=== PATIENT | female | born 1990 | race Caucasian/White ===

== ENCOUNTER → 2023-06-09 16:19 | Outpatient (REF) | payer BC, SELFPAY ==
[2023-06-09 16:59] LABS: % Basophils 0.7 % (0-2); % Eosinophils 0.2 % (0-6); % Immature Granulocytes 3.6 % (0-0.5); % Lymphocytes 19.9 % (20.5-51.1); % Neutrophils 66.6 % (42.2-75.2); Absolute Basophils 0.1 10^3/uL (0-0.2); Absolute Immature Granulocytes 0.4 10^3/uL (0-0.05); Absolute Lymphocytes 2.4 10^3/uL (1.2-3.4); Absolute Monocytes 1.1 10^3/uL (0.1-0.6); Hematocrit 34.5 % (37.0-47.0); Mean Corp Hgb Conc. 34.8 g/dL (33.0-37.0); Mean Corpuscular Hgb 28.3 pg (27.0-31.0); Mean Corpuscular Volume 81.4 fL (81.0-99.0); Nucleated Red Blood Cells % 0 %; Red Blood Cell Count 4.24 10^6/uL (4.20-5.40); White Blood Cell Count 12.1 10^3/uL (4.8-10.8)
[2023-06-09 17:18] LABS: Mean Platelet Volume 9.5 fL (7.4-10.4); Platelet Count 113 10^3/uL (130-400)
[2023-06-09 17:41] LABS: ALT (SGPT) 45 U/L (0-35); AST (SGOT) 44 U/L (14-36); Albumin 4.6 g/dl (3.5-5.0); Alkaline Phosphatase 48 U/L (38-126); Blood Urea Nitrogen 9 mg/dl (7-17); Calcium 9.1 mg/dl (8.4-10.2); Carbon Dioxide 22 mmol/L (22-30); Chloride 106 mmol/L (98-107); Glucose 86 mg/dl (70-99); Potassium 3.9 mmol/L (3.5-5.1); Sodium 134 mmol/L (135-145); Total Bilirubin 0.5 mg/dl (0.2-1.3); Total Protein 7.3 g/dl (6.3-8.2); eGFR > 60.00
[2023-06-09 17:52] LABS: Erythrocyte Sed Rate 13 mm/hour (0-20)
== END ==
LOC: REG 16:19
PROVIDERS: ATTENDING PHYSICIAN Internal Medicine Rheumatology; FAMILY PHYSICIAN Family Medicine
DX: I82.B19 Acute embolism and thrombosis of unspecified subclavian vein (principal); M06.00 Rheumatoid arthritis without rheumatoid factor, unspecified site; M79.672 Pain in left foot; Z51.81 Encounter for therapeutic drug level monitoring
CPT/HCPCS: 36415; 80053; 85025; 85652; 86140

== ENCOUNTER 2023-08-20 04:24 | Inpatient (IN) | payer BC, SELFPAY ==
[2023-08-19 19:13] VITALS: BMI 31.9
[2023-08-19 19:15] VITALS: BP 148/109
[2023-08-19] MEDS: DILAUDID 1 MG IV (23:15)
[2023-08-19] MEDS: ZOFRAN 4 MG IV (23:16)
--- NOTE | 2023-08-19 23:22 | ED.GENMED ---
History of Present Illness
<Jyothi Malagon CASH ROOM CLERK - Last Filed: 08/20/23 10:16>
General
Chief Complaint: Skin Problem
Source: patient
Exam Limitations: none
Time Seen by Provider: 08/19/23 22:31
Nursing documentation reviewed up to this point in time: agreed with
Travel History
Have you had any contact with someone who has COVID-19?: No
Do you have any symptoms of coronavirus? Fever > 100 degrees, chills, cough, shortness of breath, sore throat, loss of taste or smell, muscle aches, or headache?: No
History of Present Illness
History of Present Illness:
32 yo female with h/o RA, Bipolar, Depression, GERD, left upper extremity cervical rib/first rib resection for thoracic outlet syndrome with subclavian artery repair (Nito Anderson) presents stating she awakened today noting few tiny red spots on left
hand, these have spread quickly to entire hand and 1/2 up forearm with significant pain. Denies fever/chills. Denies recent travel or exposures
Past History
<Jyothi Malagon CASH ROOM CLERK - Last Filed: 08/20/23 10:16>
Past History
ED Past Medical History: Asthma, Other (History of migraines chronic bronchitis, pneumonia, stomach ulcers, ovarian cysts, passed kidney infections, depression, bipolar disorder, rectal bleeding. Anemia) and Other; Negative CAD, Cancer, CHF or HTN
ED Past Surgical History: Cholecystectomy and Tonsilectomy; Negative Appendectomy, Bowel resection, Brain or Cardiac
Social History
Tobacco: Smoker
Alcohol: Occasional
Drug: Former user
Personal: Single
Living: with family
Employment: Employed
Family History
Family History: Other (Kidney stones and gallstones)
Review of Systems
<Jyothi Malagon, CASH ROOM CLERK - Last Filed: 08/20/23 10:16>
Review of Systems
Allergies reviewed?: Yes
All Other Systems: ROS reviewed and negative except as documented in HPI and ROS
Constitutional: Denies fever or chills
Respiratory: Denies trouble breathing
Cardiac: Denies chest pain
ABD/GI: Reports nausea; Denies abdominal pain, vomiting or diarrhea
: Denies dysuria, frequency or difficulty voiding
Musculoskeletal: Reports other (pain, swelling, rash right hand and forearm)
Skin: Reports rash
Neurological: Denies headache
Phy Exam
<Jyothi Malagon, CASH ROOM CLERK - Last Filed: 08/20/23 10:16>
Physical Exam
Physical Exam:
GENERAL: No acute distress. A&Ox3.
CONSTITUTIONAL: Afebrile.
EYES: clear, conjunctivae normal
Neck: Supple
ENMT: moist mucus membranes, Pharynx nl
RESPIRATORY: Regular respirations, nonlabored, lungs clear.
CARDIOVASCULAR: Regular rate and rhythm, no murmurs, no rubs.
GI: Soft, nontender, normal BS
MUSCULOSKELETAL: Moves with ease. Well perfused.
SKIN: Warm, dry, moderately swollen and tender right hand w purpuric rash , confluent in center of dorsum with various size satellite lesions none more than 5 mm, right hand, extending up 2/3 of forearm, with erythematous base (borders marked for
observation) Brisk capillary refill all fingers. Danna radial pulse.
Pt has access port R upper chest wall.
PSYCH: Anxious mood and affect. Well kept, interactive and appropriate
NEUROLOGIC: Awake, alert and oriented. No focal neurological deficits
Course
<Jyothi Malagon, CASH ROOM CLERK - Last Filed: 08/20/23 10:16>
Orders/Labs/Results
Orders:
Orders
08/19/23 22:37
HYDROmorphone [Dilaudid] 1 mg IV NOW STA
Ondansetron Injectable [Zofran] 4 mg IV NOW STA
08/19/23 22:45
Blood Culture Q30M
FERMIN Source: Blood/Venous
Specimen Description:
08/19/23 23:13
Heparin Pf [Heparin Lock Flush] 500 unit .ROUTE .STK-MED ONE
08/19/23 23:15
Blood Culture Q30M
FERMIN Source: Blood/Venous
Specimen Description:
08/19/23 23:26
Complete Blood Count/With Diff Urgent
Comprehensive Metabolic Panel Urgent
Lactic Acid Q4H
Comment: CANCEL 2nd LACTIC ACID IF 1st LACTIC ACID IS LESS THAN 2
PTT Urgent
Prothrombin Time Urgent
08/19/23 23:41
Heparin Pf [Heparin Lock Flush] 500 unit .ROUTE .STK-MED ONE
08/20/23 00:09
Vancomycin [Vancocin] 1,250 mg 0.9% Sodium Chloride 250 ml [Nss] 250 ml IV NOW
08/20/23 00:29
Ketorolac [Toradol] 15 mg IV NOW STA
08/20/23 02:23
US Periph Venous UPPER Ext RT Urgent
Comment:
Reason For Exam: Edema / Pain
08/20/23 03:22
Admit/Transfer Patient As Directed
Co-Sign Provider:
Level of Care: Inpatient admission
Assign to:: Medical/Surgical
Physician / Group: Pepe
Diagnosis: RUE Swelling / Purpura
Reason for Hospitalization: RUE Swelling / Purpura
Expected length of stay greater than two midnights?: Yes
ELOS- Estimated Length of Stay in days: 2
I certify the patient meets the requirements for IP care: Yes
08/20/23 03:24
Code Status As Directed
Resuscitation Status: Full Code
08/20/23 03:35
Acetaminophen [Tylenol] 1,000 mg PO Q6HPRN PRN
Ketorolac [Toradol] 15 mg IV Q6HPRN PRN
Levalbuterol Tartrate [Xopenex Hfa 45 Mcg Inhaler] 2 puff INH R Q4HPRN PRN
Lorazepam [Ativan] 2 mg PO BID PRN
Polyethylene Glycol Powder [Miralax] 17 grams PO DAILY PRN
Tizanidine [Zanaflex] 2 mg PO Q8HPRN PRN
08/20/23 03:35
Activity As Directed
Activity Level: Ambulate
With Assistance
Bladder Scan As Directed
Follow Bladder Retention/Intermittent Cath Algorithm?: Yes
PRN if no void in __ hours: 6
Frequency: Per Retention Algorithm
If Bladder Scan Result >: 400
then:: Straight cath
Elevate Extremity As Directed
Extremity:: RUE
I/O [Intake/ Output] As Directed
Frequency: Per unit guidelines
Pneumatic Compression Sleeves As Directed
Type: Knee high
Straight Cath As Directed
Frequency: Per Retention Algorithm
Additional Instructions: straight cath as needed per acute urinary retention algorithm for 24 hrs
Additional Instructions: for bladder scan greater than 400 mL
Vascular Checks As Directed
Location: RUE
Frequency: q2h
Vital Signs As Directed
Frequency: Per unit guidelines
Xopenex Reason for Use As Directed
Reason for ordering Xopenex instead of Albuterol: Tachycardia
Oxygen Therapy [O2 Therapy] [RESP] Routine
Titrate/Wean O2 to maintain O2 sat greater than (%): 94
Ot Eval And Treat Routine
PT Consult [Pt Eval And Treat] Routine
Activity Level: Ambulate
With Assistance
DX Deep Vein Thrombosis Video Routine
08/20/23 04:00
FOLic ACID [Folvite] 1 mg PO SUMOTUWETHFR
VANCOMYCIN Pharmacy to Dose [VANCOCIN Pharmacy to Dose] 1 each Pharmacy To Prepare [Call Pharmacy To Prepare] 0 ml IV PER PROTOCOL
08/20/23 06:09
Complete Blood Count/No Diff IN AM
Erythrocyte Sed Rate Routine
08/20/23 06:10
Basic Metabolic Panel IN AM
C-Reactive Protein Routine
Creatine Phosphokinase Routine
HCG, Serum Qualitative Screen Routine
Comment: ADD ON
TSH Reflex To Free T4 Routine
08/20/23 08:00
Buprenorphine [Subutex] 8 mg SL BID
Cetirizine HCl [Zyrtec] 10 mg PO DAILY
Clopidogrel Bisulfate [Plavix] 75 mg PO DAILY
Docusate Sodium [Colace] 100 mg PO BID
Hydroxychloroquine [Plaquenil] 200 mg PO BID
Pantoprazole [Protonix IV] 40 mg IV DAILY
Prednisone [Deltasone] 40 mg PO DAILY
08/20/23 18:00
Enoxaparin Sodium [Lovenox] 40 mg SC QPM
08/20/23 22:00
Clonazepam [Klonopin] 1 mg PO HS
Abnormal Lab Results
08/19/23
23:26
WBC 13.0 H 10^3/uL
(4.8-10.8)
RBC 4.02 L 10^6/uL
(4.20-5.40)
Hgb 11.1 L g/dL
(12.0-16.0)
Hct 34.8 L %
(37.0-47.0)
MCHC 31.9 L g/dL
(33.0-37.0)
RDW 14.7 H %
(11.5-14.5)
Abs Immat Gran (auto) 0.6 H 10^3/uL
(0-0.05)
Absolute Neuts (auto) 9.6 H 10^3/uL
(1.4-6.5)
Absolute Monos (auto) 0.9 H 10^3/uL
(0.1-0.6)
Immature Gran % 4.6 H %
(0-0.5)
Lymphocytes % 13.2 L %
(20.5-51.1)
Glucose 102 H mg/dl
(70-99)
ALT 37 H U/L
(0-35)
08/19/23 23:26
08/19/23 23:26
Vital Signs
Initial and Last Documented VS:
Initial Vital Signs
Temp Pulse Resp BP Pulse Ox
97.9 F 91 16 148/109 99
08/19/23 19:15 08/19/23 19:15 08/19/23 19:15 08/19/23 19:15 08/19/23 19:15
Last Documented Vital Signs
Temp Pulse Resp BP Pulse Ox
98.4 F 104 20 114/67 98
08/20/23 02:28 08/20/23 09:43 08/20/23 09:43 08/20/23 09:43 08/20/23 09:43
<Juan Vega MD - Last Filed: 08/20/23 03:29>
Orders/Labs/Results
Orders:
Orders
08/19/23 22:37
HYDROmorphone [Dilaudid] 1 mg IV NOW STA
Ondansetron Injectable [Zofran] 4 mg IV NOW STA
08/19/23 22:45
Blood Culture Q30M
FERMIN Source: Blood/Venous
Specimen Description:
08/19/23 23:13
Heparin Pf [Heparin Lock Flush] 500 unit .ROUTE .STK-MED ONE
08/19/23 23:15
Blood Culture Q30M
FERMIN Source: Blood/Venous
Specimen Description:
08/19/23 23:26
Complete Blood Count/With Diff Urgent
Comprehensive Metabolic Panel Urgent
Lactic Acid Q4H
Comment: CANCEL 2nd LACTIC ACID IF 1st LACTIC ACID IS LESS THAN 2
PTT Urgent
Prothrombin Time Urgent
08/19/23 23:41
Heparin Pf [Heparin Lock Flush] 500 unit .ROUTE .STK-MED ONE
08/20/23 00:09
Vancomycin [Vancocin] 1,250 mg 0.9% Sodium Chloride 250 ml [Nss] 250 ml IV NOW
08/20/23 00:29
Ketorolac [Toradol] 15 mg IV NOW STA
08/20/23 02:23
US Periph Venous UPPER Ext RT Urgent
Comment:
Reason For Exam: Edema / Pain
08/20/23 03:22
Admit/Transfer Patient As Directed
Co-Sign Provider:
Level of Care: Inpatient admission
Assign to:: Medical/Surgical
Physician / Group: Pepe
Diagnosis: RUE Swelling / Purpura
Reason for Hospitalization: RUE Swelling / Purpura
Expected length of stay greater than two midnights?: Yes
ELOS- Estimated Length of Stay in days: 2
I certify the patient meets the requirements for IP care: Yes
08/20/23 03:24
Code Status As Directed
Resuscitation Status: Full Code
08/20/23 03:35
Acetaminophen [Tylenol] 1,000 mg PO Q6HPRN PRN
Ketorolac [Toradol] 15 mg IV Q6HPRN PRN
Levalbuterol Tartrate [Xopenex Hfa 45 Mcg Inhaler] 2 puff INH R Q4HPRN PRN
Lorazepam [Ativan] 2 mg PO BID PRN
Polyethylene Glycol Powder [Miralax] 17 grams PO DAILY PRN
Tizanidine [Zanaflex] 2 mg PO Q8HPRN PRN
08/20/23 03:35
Activity As Directed
Activity Level: Ambulate
With Assistance
Bladder Scan As Directed
Follow Bladder Retention/Intermittent Cath Algorithm?: Yes
PRN if no void in __ hours: 6
Frequency: Per Retention Algorithm
If Bladder Scan Result >: 400
then:: Straight cath
Elevate Extremity As Directed
Extremity:: RUE
I/O [Intake/ Output] As Directed
Frequency: Per unit guidelines
Pneumatic Compression Sleeves As Directed
Type: Knee high
Straight Cath As Directed
Frequency: Per Retention Algorithm
Additional Instructions: straight cath as needed per acute urinary retention algorithm for 24 hrs
Additional Instructions: for bladder scan greater than 400 mL
Vascular Checks As Directed
Location: RUE
Frequency: q2h
Vital Signs As Directed
Frequency: Per unit guidelines
Xopenex Reason for Use As Directed
Reason for ordering Xopenex instead of Albuterol: Tachycardia
Oxygen Therapy [O2 Therapy] [RESP] Routine
Titrate/Wean O2 to maintain O2 sat greater than (%): 94
Ot Eval And Treat Routine
PT Consult [Pt Eval And Treat] Routine
Activity Level: Ambulate
With Assistance
DX Deep Vein Thrombosis Video Routine
08/20/23 04:00
FOLic ACID [Folvite] 1 mg PO SUMOTUWETHFR
VANCOMYCIN Pharmacy to Dose [VANCOCIN Pharmacy to Dose] 1 each Pharmacy To Prepare [Call Pharmacy To Prepare] 0 ml IV PER PROTOCOL
08/20/23 06:09
Complete Blood Count/No Diff IN AM
Erythrocyte Sed Rate Routine
08/20/23 06:10
Basic Metabolic Panel IN AM
C-Reactive Protein Routine
Creatine Phosphokinase Routine
HCG, Serum Qualitative Screen Routine
Comment: ADD ON
TSH Reflex To Free T4 Routine
08/20/23 08:00
Buprenorphine [Subutex] 8 mg SL BID
Cetirizine HCl [Zyrtec] 10 mg PO DAILY
Clopidogrel Bisulfate [Plavix] 75 mg PO DAILY
Docusate Sodium [Colace] 100 mg PO BID
Hydroxychloroquine [Plaquenil] 200 mg PO BID
Pantoprazole [Protonix IV] 40 mg IV DAILY
Prednisone [Deltasone] 40 mg PO DAILY
08/20/23 18:00
Enoxaparin Sodium [Lovenox] 40 mg SC QPM
08/20/23 22:00
Clonazepam [Klonopin] 1 mg PO HS
Abnormal Lab Results
08/19/23
23:26
WBC 13.0 H 10^3/uL
(4.8-10.8)
RBC 4.02 L 10^6/uL
(4.20-5.40)
Hgb 11.1 L g/dL
(12.0-16.0)
Hct 34.8 L %
(37.0-47.0)
MCHC 31.9 L g/dL
(33.0-37.0)
RDW 14.7 H %
(11.5-14.5)
Abs Immat Gran (auto) 0.6 H 10^3/uL
(0-0.05)
Absolute Neuts (auto) 9.6 H 10^3/uL
(1.4-6.5)
Absolute Monos (auto) 0.9 H 10^3/uL
(0.1-0.6)
Immature Gran % 4.6 H %
(0-0.5)
Lymphocytes % 13.2 L %
(20.5-51.1)
Glucose 102 H mg/dl
(70-99)
ALT 37 H U/L
(0-35)
08/19/23 23:26
08/19/23 23:26
Vital Signs
Initial and Last Documented VS:
Initial Vital Signs
Temp Pulse Resp BP Pulse Ox
97.9 F 91 16 148/109 99
08/19/23 19:15 08/19/23 19:15 08/19/23 19:15 08/19/23 19:15 08/19/23 19:15
Last Documented Vital Signs
Temp Pulse Resp BP Pulse Ox
98.4 F 104 20 114/67 98
08/20/23 02:28 08/20/23 09:43 08/20/23 09:43 08/20/23 09:43 08/20/23 09:43
<Jyothi Malagon CASH ROOM CLERK - Last Filed: 08/20/23 10:16>
MDM/Problems Addressed
Differential Diagnosis Includes:
cellulitis,vasculitis
MDM/Problems Addressed:
32 yo female with h/o RA, Bipolar, Depression, GERD, left upper extremity cervical rib/first rib resection for thoracic outlet syndrome with subclavian artery repair (Dr. Beauchamp) presents stating she awakened today noting few tiny red spots on left
hand, these have spread quickly to entire hand and 1/2 up forearm with significant pain. Denies fever/chills. Denies recent travel or exposures
Afebrile, mild distress with significant pain Right hand and forearm
08/19/2023 2336 PM
Patient states no relief of pain after IV Dilaudid. States 'it feels like nerve pain.'
Case discussed with Dr. Vega who evaluated patient
32 yo immunosuppressed female with significant swelling, pain, rash right upper extremity
Plan: Admit: Cellulitis RUE
08/20/2023 0004 AM
CBC: WBC 13.0
CMP: Normal
Hospitalist notified of admission.
Chronic conditions affecting care: Immunosuppressed and Other (RA)
<Jyothi Malagon, CASH ROOM CLERK - Last Filed: 08/20/23 10:16>
*Critical Care Note
Total Time (30-74mins, 75-104mins- exclusive of procedures): Not Applicable
ED Attending Note
<Jyothi Malagon, CASH ROOM CLERK - Last Filed: 08/20/23 10:16>
-
Portions of this chart may have been created with voice recognition software.� Occasional wrong word or��sound alike� substitutions may have occurred due to the inherent limitations of voice recognition software.
<Juan Vega MD - Last Filed: 08/20/23 03:29>
ED Attending Note
Patient seen and examined by attending physician: Yes
ED Attending Note:
I have seen and evaluated the patient with a [id number] encounter. I have spoken to the advance practicer provider and involved in the medical history, the physical exam, medical decision making.
Evaluation and management service: agree unless noted differently below.
Results interpretation: agree unless noted differently below.
Focused HPI: 32-year-old female presents with redness, pain, swelling right forearm. She says onset over the past 24 hours. Has not had fever or chills. She denies any trauma. She denies any bug bites. Apparently [place] recently [place] camp and
[place] and had her hand in the water but she says she was not bitten or stung.
Physical exam: Hypertensive otherwise normal vitals. Patient has erythema, warmth, swelling of the right hand on the dorsum as well as the right forearm, no redness proximal to the right elbow. She has some large purpura on the dorsum of the hand.
Entire area is warm and tender to the touch
Medical Decision Making: Patient presents with redness, swelling, pain in the right arm over the past 24 hours. Exam as above. Suspect cellulitis although vasculitis also consideration. Labs sent off show leukocytosis. Patient having significant
pain will treat with antibiotics admit for continued treatment.
Discharge Plan
Departure
Patient Disposition: Admit
Date of Disposition: 08/20/23
Time of Disposition: 00:08
Admit to: Med/Surg
Presentation/result/management discussed w/ accepting MD/DO: Hospitalist
Condition: Fair
Discharge Problem:
Cellulitis of right upper extremity
Interventions
Interventions:
*Risk Screen - Suicide Last Done: 08/19/23 19:15
*General Assessment Last Done: 08/19/23 22:42
*Neglect/Abuse Screening Last Done: 08/19/23 19:15
ED- Fall Risk Assessment Last Done: 08/20/23 03:37
*ED COVID-19 Vaccine History Last Done: 08/19/23 19:15
ED-Skin Assessment Last Done: 08/19/23 22:42
[2023-08-19 23:32] LABS: % Basophils 0.6 % (0-2); % Eosinophils 0.3 % (0-6); % Immature Granulocytes 4.6 % (0-0.5); % Lymphocytes 13.2 % (20.5-51.1); % Monocytes 6.9 % (1.7-9.3); % Neutrophils 74.4 % (42.2-75.2); Absolute Basophils 0.1 10^3/uL (0-0.2); Absolute Immature Granulocytes 0.6 10^3/uL (0-0.05); Absolute Lymphocytes 1.7 10^3/uL (1.2-3.4); Absolute Monocytes 0.9 10^3/uL (0.1-0.6); Absolute Neutrophils 9.6 10^3/uL (1.4-6.5); Hematocrit 34.8 % (37.0-47.0); Hemoglobin 11.1 g/dL (12.0-16.0); Mean Corp Hgb Conc. 31.9 g/dL (33.0-37.0); Mean Corpuscular Hgb 27.6 pg (27.0-31.0); Mean Corpuscular Volume 86.6 fL (81.0-99.0); Mean Platelet Volume 8.2 fL (7.4-10.4); Nucleated Red Blood Cells % 0 %; Platelet Count 209 10^3/uL (130-400); Red Blood Cell Count 4.02 10^6/uL (4.20-5.40); Red Cell Dist. Width 14.7 % (11.5-14.5)
[2023-08-19 23:46] LABS: Lactic Acid 1.4 mmol/L (0.7-2.0)
[2023-08-19 23:47] LABS: ALT (SGPT) 37 U/L (0-35); AST (SGOT) 26 U/L (14-36); Albumin 4.2 g/dl (3.5-5.0); Alkaline Phosphatase 45 U/L (38-126); Blood Urea Nitrogen 15 mg/dl (7-17); Calcium 8.9 mg/dl (8.4-10.2); Carbon Dioxide 27 mmol/L (22-30); Chloride 100 mmol/L (98-107); Estimated Creatinine Clearance 117 ml/min; Glucose 102 mg/dl (70-99); Potassium 3.9 mmol/L (3.5-5.1); Sodium 136 mmol/L (135-145); Total Bilirubin 0.3 mg/dl (0.2-1.3); Total Protein 6.6 g/dl (6.3-8.2); eGFR > 60.00
[2023-08-19 23:50] LABS: APTT 30.7 Sec (23.4-35.0); PT 13.2 Sec (11.4-14.6)
[2023-08-20] MEDS: TORADOL 15 MG IV ×3 (00:41→20:24)
[2023-08-20 02:28] VITALS: BP 110/70
--- NOTE | 2023-08-20 05:28 | HPS.HSE ---
Family Physician
-
Family Physician: Bashir Edwards
Chief Complaint
-
RUE Swelling / Rash
History of Present Illness
Patient is a 32y F with PMH significant for RA on chronic immunosuppressants, history of multiple DVTs and obesity who presents to ED complaining of swelling, pain and redness of the RUE. Patient states that her RUE was somewhat swollen /
edematous yesterday afternoon. She notes that this is not particularly unusual for her due to her RA. Patient notes that she is currently having a flare of her RA symptoms with pain in the feet and hands especially. She is on higher than usual
doses of her daily prednisone for the past week or so as a result of these symptoms.
Today she woke to find several bright red dots scattered about the dorsum of the R hand. This has progressed throughout the day to include tense edema of the fingers and hand extending into the UE to the elbow / distal upper arm.
the red spots have become a confluent area of darker, purpuric changes with scattered satellite lesions. No blisters / bullae at this time.
Patient presented to the ED this evening for further evaluation.
She reports some nausea when the pain was most severe (was 10/10 at it's peak).
She denies any fevers / chills. No recent injury or trauma. No recent / unusual activity involving the R hand / RUE.
Patient denies any medication changes recently - other than the change in prednisone.
She was due for her weekly MTX injection today, but did not take this as she presented to the hospital prior to her dose.
Patient denies any prior history of similar symptoms.
Medical History
Past Medical History
Past Medical History: Reports Other
Additional Past Medical History:
Seronegative Rheumatoid Arthritis
Chronic Pain Syndrome
Asthma
Bipolar Disorder
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
Paget - Schroetter Syndrome
Obesity
Past Surgical History: Reports Other
Additional Past Surgical History:
T&A
Cholecystitis
Left 1st Rib Resection
Left Iliac Vein Stenting
Social History
Tobacco: Former Smoker (Quit smoking about 4 years ago. Continues to use vape occasionally.)
Alcohol: None
Drug: Other (History of IVDA / opioid abuse. Sober x 8 years.)
Family History
Family History: Not pertinent
Allergies / Home Medications
Allergies reflects when Allergies were last updated in [employer].
Home Medications with original date entered in [employer]
Allergy/Medication List:
Allergies
Allergy/AdvReac Type Severity Reaction Status Date / Time
adhesive [Adhesive] Allergy SENSITIVE Verified 08/19/23 19:20
amoxicillin Allergy Rash Verified 08/19/23 19:20
diphenhydramine HCl Allergy elevated Verified 08/19/23 19:20
[From Benadryl] heart rate
nitrofurantoin Allergy Rash Verified 08/19/23 19:20
[From Macrobid]
Penicillins Allergy Rash Verified 08/19/23 19:20
promethazine [Promethazine] Allergy 'Heart Verified 08/19/23 19:20
rate and
BP went up'
red dye Allergy Rash Verified 08/19/23 19:20
Sulfa (Sulfonamide Allergy Rash and Verified 08/19/23 19:20
Antibiotics) vomiting
[Sulfa (Sulfonamides)]
yellow dye [Yellow Dye] Allergy Vomiting/Ra Verified 08/19/23 19:20
sh
Home Medications
folic acid 1 mg tablet 1 mg PO SUMOTUWETHFR 12/04/18
prednisone 5 mg tablet 30 mg PO QPM PRN swelling 01/11/19
tizanidine 2 mg tablet 2 mg PO Q8HPRN PRN pain 01/11/19
acetaminophen 500 mg tablet (Tylenol Extra Strength) 1,000 mg PO Q6HPRN PRN pain 08/06/20
buprenorphine HCl 8 mg sublingual tablet 8 mg sublingual BID 08/06/20
cetirizine 10 mg tablet 10 mg PO DAILY 08/06/20
clopidogrel 75 mg tablet 75 mg PO DAILY 30 days #30 tabs 08/06/20
dextroamphetamine-amphetamine 20 mg tablet (Adderall) 10 mg PO BID 08/06/20
hydroxychloroquine 200 mg tablet 200 mg PO BID 08/06/20
levalbuterol tartrate 45 mcg/actuation aerosol inhaler 2 puff inhalation R Q4HPRN PRN sob 08/06/20
clonazepam 1 mg tablet (Klonopin) 1 mg PO HS 05/07/22
lorazepam 2 mg tablet 2 mg PO BID PRN anxiety 05/07/22
methotrexate 1 ml IM WEEKLY 09/29/22
tocilizumab 200 mg/10 mL (20 mg/mL) intravenous solution (Actemra) 200 mg IV Q4W 08/20/23
Review of Systems
-
History Source: Patient
A 12 point ROS was completed and negative except as noted: Yes
Constitutional: Denies Fever, Fatigue or Chills
EENT: Denies Sore Throat
Respiratory: Denies Cough or Trouble Breathing
Cardiac: Denies Chest Pain or Palpitations
Abdomen/GI: Reports Nausea; Denies Abdominal Pain, Vomiting or Diarrhea
: Denies Dysuria, Frequency or Flank Pain
Musculoskeletal: Reports Joint Pain, Joint Swelling and Edema
Neurological: Denies Dizzy or Headache
Psych: Denies Depression or Anxiety
Physical Exam
Vital Signs
Vital Signs
Temp Pulse Resp BP Pulse Ox
98.4 F 102 18 110/70 97
08/20/23 02:28 08/20/23 02:28 08/20/23 02:28 08/20/23 02:28 08/20/23 02:28
Physical Exam
General: Other (32y F in mild distress due to pain.)
HEENT: Moist mucous membranes and PERRLA
Respiratory: Clear; No Wheezes, Rales or Rhonchi
Cardiac: S1/S2 and Regular Rhythm; No Murmur
GI: Soft, Non Tender, Non Distended and Normal Bowel Sounds
Musculoskeletal: Other (RUE with tense, tender edema from the fingertips to the elbow. Confluent area of purpura over the dorsum of the hand with scattered satellite lesions. No increased warmth. No erythema.)
Neuro: AO x 3
Hematologic/Lymphatic: Other (Pulses are intact at the R wrist.)
Laboratory Results
-
Laboratory Results
PT 13.2 Sec (11.4-14.6) 08/19/23 23:26
INR 1.00 08/19/23 23:
APTT 30.7 Sec (23.4-35.0) 08/19/23 23:26
Lactic Acid Cancelled 08/20/23 02:45
Total Bilirubin 0.3 mg/dl (0.2-1.3) 08/19/23 23:26
AST 26 U/L (14-36) 08/19/23 23:26
ALT 37 U/L (0-35) H 08/19/23 23:26
Alkaline Phosphatase 45 U/L (38-126) 08/19/23 23:26
Impression/Plan
-
A/P: Patient is a 32y F with PMH significant for RA, prior DVTs and obesity who presents to ED complaining of pain, swelling and skin changes of the RUE starting yesterday.
RUE Edema / Purpura
- Admit for further evaluation and treatment.
- US done in the ED shows no evidence of RUE occlusive DVT.
- Pulses are strong on exam and arterial occlusion seems unlikely.
- Appearance is not strongly suggestive of cellulitis - but will continue with empiric abx for now.
- ? vasculitic process with recent RA flare, etc.
- Check inflammatory markers, CPK, etc.
- Increase prednisone to 40mg daily dose for now.
- Consider Rheum evaluation if symptoms worsen or persist.
- Follow for any new symptoms / complaints.
- Continue pain control / supportive care / elevation / etc.
Rheumatoid Arthritis
- Current flare on higher doses of prednisone for the past week or so.
- On chronic Actemra and MTX.
- Continue folate supplementation.
- Prednisone as noted above.
- Follow for any new / worsening symptoms.
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
- s/p L iliac vein stenting and L 1st rib resection.
- No evidence of RUE DVT as noted above.
- Continue DAPT.
- Consider Vasc Surgery evaluation - though with no DVT and good pulses on exam do not see acute vascular need.
Bipolar Disorder
- Stable. Continue current outpatient med regimen.
Chronic Pain Syndrome
History of Opioid Abuse
- Continue outpatient med regimen including buprenorphine.
- Avoid other narcotic / opioid medications as able.
DVT Prophylaxis: Lovenox
Code Status: Full
[2023-08-20] MEDS: VANCOCIN 540 MG IV (06:13)
[2023-08-20 06:37] LABS: Hematocrit 33.7 % (37.0-47.0); Hemoglobin 10.5 g/dL (12.0-16.0); Mean Corp Hgb Conc. 31.2 g/dL (33.0-37.0); Mean Corpuscular Hgb 27.1 pg (27.0-31.0); Mean Corpuscular Volume 87.1 fL (81.0-99.0); Mean Platelet Volume 8.3 fL (7.4-10.4); Platelet Count 196 10^3/uL (130-400); Red Blood Cell Count 3.87 10^6/uL (4.20-5.40); Red Cell Dist. Width 14.8 % (11.5-14.5); White Blood Cell Count 10.2 10^3/uL (4.8-10.8)
[2023-08-20 06:46] LABS: Erythrocyte Sed Rate 8 mm/hour (0-20)
[2023-08-20 06:58] LABS: Blood Urea Nitrogen 16 mg/dl (7-17); Calcium 8.5 mg/dl (8.4-10.2); Carbon Dioxide 29 mmol/L (22-30); Chloride 103 mmol/L (98-107); Creatine Phosphokinase 46 U/L (30-135); Estimated Creatinine Clearance 117 ml/min; Glucose 98 mg/dl (70-99); Potassium 3.7 mmol/L (3.5-5.1); Sodium 134 mmol/L (135-145); eGFR > 60.00
[2023-08-20 06:59] LABS: C-Reactive Protein < 5.00 mg/L (0.0-10.00)
--- NOTE | 2023-08-20 08:01 | W.PN.UPDATE ---
Update Note
Progress Note Update
Seen and examined with SANYA Campa in the emergency room. Full consultation to follow. 32-year-old female known to me status post left upper extremity cervical rib/first rib resection for thoracic outlet syndrome with subclavian artery repair
(performed by myself and Dr. Shelton in 2019). Prior to the procedure patient had had bilateral upper extremity arteriography by Dr. Shelton demonstrating significant cervical rib compression of the artery on the left side. On the right side
however no evidence of arterial compression even in the stress position.
In addition patient underwent subsequent left iliac vein angioplasty and stent placement by Dr. Shelton in 2020. Has been followed in the office by Dr. Shelton and myself subsequently. Was due for routine surveillance follow-up upcoming in
about a month. Now patient notes symptoms of right hand and lesser in the forearm swelling. Also notes discoloration that progressed pretty rapidly. She started noting a stippling type rash on the dorsum of the right hand yesterday that
significantly progressed on arrival in the emergency room very briskly. In addition increasing swelling. She does note swelling in the left arm and in the feet bilaterally as well. She has chronic rheumatoid arthritis for which she is treated.
Recently her steroid dose was increased to help quell some of this swelling type symptoms she is having.
On exam/she is awake and alert. Breathing is unlabored. Right upper extremity with easily palpable radial pulse. When I put her arm in more of a stress position the pulse is still present. Her hand is edematous. No cyanotic discoloration. But
on the dorsum there is a purpuric rash that is red in color that is almost confluent on the dorsum of the hand and then more stippled onto the forearm. The forearm is soft. Upper arm is soft. Compartments are all soft. She does have some edema
on the left hand as well but lesser so and has mild/minimal stippling on the left dorsum of the hand but she notes that that is more chronic that she gets in the morning. Motor/sensory fully intact b/l hands, but extension of fingers right hand
slightly more difficult due to swelling. Her abdomen is soft. Feet are both warm with easily palpable DP pulses bilaterally. But she does have moderate to significant edema in both feet as well. No discoloration of the feet.
Venous ultrasound completed this morning reviewed. No evidence of DVT.
Plan/ Unclear the nature of this discoloration and swelling. No evidence of upper extremity DVT. Does not appear to be venous thoracic outlet syndrome related. Good pulsation without stimulation and stress position. In addition findings of
discoloration are not consistent with arterial ischemic issues. No evidence of embolization/discoloration/mottling of the fingertips to suggest any subclavian artery source for embolization. Therefore I think this is likely not a vascular
phenomenon but may be more of an inflammatory condition. Likely may involve rheumatology or dermatology or both. Will obtain CT angiogram to rule out any acute vascular cause here but I think this is going to be negative.
NOTE : SEE PICTURES BELOW OF RIGHT HAND AND LEFT HAND CURRENTLY:
RIGHT HAND:
LEFT HAND:
--- NOTE | 2023-08-20 08:02 | CON.VAS ---
Consultation
Consultation Request
Date/Time Consultation Performed: 08/20/2023 0800
Requesting Provider: ED physician
Performing Provider: Nereyda Campa NP-C for Aries Beauchamp MD
Reason for Consultation: Right upper extremity edema and rash
Medical History
-
Chief Complaint: Right upper extremity edema and rash
History of Present Illness:
32-year-old female known to our service as she is status post left upper extremity cervical rib/first rib resection for thoracic outlet syndrome with subclavian artery repair (performed by Dr. Aries Beauchamp and Dr. Shelton in 2019). Prior to the
procedure patient had bilateral upper extremity arteriography by Dr. Shelton demonstrating significant cervical rib compression of the artery on the left side. On the right side however no evidence of arterial compression even in the stress
position. In addition patient underwent subsequent left iliac vein angioplasty and stent placement by Dr. Shelton in 2020. Has been followed in the office by Dr. Shelton and Dr. Beauchamp subsequently. She was due for routine surveillance/follow-up
in about a month. Now patient notes symptoms of right hand and lesser in the forearm swelling. Also notes discoloration that progressed pretty rapidly. She started noting a stippling type rash on the dorsum of the right hand yesterday that
significantly progressed on arrival in the emergency room very briskly. In addition increasing swelling. She does note swelling in the left arm and in the feet bilaterally as well. She has chronic rheumatoid arthritis for which she is treated.
Recently her steroid dose was increased to help quell some of this swelling type symptoms she is having.
On exam/she is awake and alert. Breathing is unlabored. Right upper extremity with easily palpable radial pulse. When I put her arm in more of a stress position the pulse is still present. Her hand is edematous. No cyanotic discoloration. But
on the dorsum there is a purpuric rash that is red in color that is almost confluent on the dorsum of the hand and then more stippled onto the forearm. The forearm is soft. Upper arm is soft. Compartments are all soft. She does have some edema
on the left hand as well but lesser so and has mild/minimal stippling on the left dorsum of the hand but she notes that that is more chronic that she gets in the morning. Motor/sensory fully intact b/l hands, but extension of fingers right hand
slightly more difficult due to swelling. Her abdomen is soft. Feet are both warm with easily palpable DP pulses bilaterally. But she does have moderate to significant edema in both feet as well. No discoloration of the feet.
Venous ultrasound completed this morning reviewed. No evidence of DVT.
Allergies / Home Medications
Allergy/AdvReac Type Severity Reaction Status Date / Time
adhesive [Adhesive] Allergy SENSITIVE Verified 08/19/23 19:20
amoxicillin Allergy Rash Verified 08/19/23 19:20
diphenhydramine HCl Allergy elevated Verified 08/19/23 19:20
[From Benadryl] heart rate
nitrofurantoin Allergy Rash Verified 08/19/23 19:20
[From Macrobid]
Penicillins Allergy Rash Verified 08/19/23 19:20
promethazine [Promethazine] Allergy 'Heart Verified 08/19/23 19:20
rate and
BP went up'
red dye Allergy Rash Verified 08/19/23 19:20
Sulfa (Sulfonamide Allergy Rash and Verified 08/19/23 19:20
Antibiotics) vomiting
[Sulfa (Sulfonamides)]
yellow dye [Yellow Dye] Allergy Vomiting/Ra Verified 08/19/23 19:20
sh
�Medication �Instructions �Recorded �Confirmed �Type
folic acid 1 mg tablet 1 mg PO SUMOTUWETHFR 12/04/18 08/20/23 History
prednisone 5 mg tablet 30 mg PO QPM PRN swelling 01/11/19 08/20/23 History
tizanidine 2 mg tablet 2 mg PO Q8HPRN PRN pain 01/11/19 08/20/23 History
acetaminophen 500 mg tablet 1,000 mg PO Q6HPRN PRN pain 08/06/20 08/20/23 History
(Tylenol Extra Strength)
buprenorphine HCl 8 mg sublingual 8 mg sublingual BID 08/06/20 08/20/23 History
tablet
cetirizine 10 mg tablet 10 mg PO DAILY 08/06/20 08/20/23 History
clopidogrel 75 mg tablet 75 mg PO DAILY 30 days #30 tabs 08/06/20 08/20/23 Rx
dextroamphetamine-amphetamine 20 10 mg PO BID 08/06/20 08/20/23 History
mg tablet (Adderall)
hydroxychloroquine 200 mg tablet 200 mg PO BID 08/06/20 08/20/23 History
levalbuterol tartrate 45 2 puff inhalation R Q4HPRN PRN sob 08/06/20 08/20/23 History
mcg/actuation aerosol inhaler
clonazepam 1 mg tablet (Klonopin) 1 mg PO HS 05/07/22 08/20/23 History
lorazepam 2 mg tablet 2 mg PO BID PRN anxiety 05/07/22 08/20/23 History
methotrexate 1 ml IM WEEKLY 09/29/22 08/20/23 History
tocilizumab 200 mg/10 mL (20 200 mg IV Q4W 08/20/23 08/20/23 History
mg/mL) intravenous solution
(Actemra)
Review of Systems
-
History Source: Patient
Constitutional: Reports No Symptoms
EENT: Reports No Symptoms
Respiratory: Reports No Symptoms
Vascular: Denies Leg Pain / Claudication
Abdomen/GI: Reports No Symptoms
: Reports No Symptoms
Musculoskeletal: Reports Edema
Skin: Reports Rash
Neurological: Reports No Symptoms
Endocrine: Reports No Symptoms
Physical Exam
Vital Signs
Temp Pulse Resp BP Pulse Ox
98.4 F 102 18 110/70 97
08/20/23 02:28 08/20/23 02:28 08/20/23 02:28 08/20/23 02:28 08/20/23 02:28
Lab Results
08/20/23 06:09
08/20/23 06:10
Physical Exam
General: No Apparent Distress and Comfortable
HEENT: Normocephalic, Anicteric and Atraumatic
Respiratory: Negative Non Labored Respirations
Cardiac: Negative JVD
Breast: Deferred by me
GI: Soft, Non Tender and Non Distended
Musculoskeletal: Other (Right upper extremity with easily palpable radial pulse. Her hand is edematous. No cyanotic discoloration. The forearm is soft. Upper arm is soft. Compartments are all soft.)
Skin: Other (a purpuric rash that is red in color that is almost confluent on the dorsum of the hand and then more stippled onto the forearm.)
Neuro: AO x 3
Assessment / Plan
-
Assessment: Unclear the nature of this discoloration and swelling. No evidence of upper extremity DVT. Does not appear to be venous thoracic outlet syndrome related.
Plan:
Good pulsation without stimulation and stress position. In addition findings of discoloration are not consistent with arterial ischemic issues. No evidence of embolization/discoloration/mottling of the fingertips to suggest any subclavian artery
source for embolization. Not likely a vascular phenomenon but may be more of an inflammatory condition. Likely may involve rheumatology or dermatology or both. Will obtain CT angiogram to rule out any acute vascular cause here but I think this is
going to be negative.
I performed this shared service with the attending. I evaluated the patient [id number] and have entered clinical documentation as shown in the encounter note. I performed the following component(s):�history and physical exam. Note that medical
decision making is not final until attested by vascular attending.
--- NOTE | 2023-08-20 08:27 | W.PN.HOSP.TC ---
Today's Communication/Plan
-
IV steroids.
Assessment / Plan
Assessment / Plan
Physical Exam
General: Other (32y F in mild distress due to pain.)
HEENT: Moist mucous membranes and PERRLA
Respiratory: Clear; No Wheezes, Rales or Rhonchi
Cardiac: S1/S2 and Regular Rhythm; No Murmur
GI: Soft, Non Tender, Non Distended and Normal Bowel Sounds
Musculoskeletal: Other (RUE with tense, tender edema from the fingertips to the elbow. Confluent area of purpura over the dorsum of the hand with scattered satellite lesions. No increased warmth. No erythema.)
Neuro: AO x 3
Hematologic/Lymphatic: Other (Pulses are intact at the R wrist.)
A/P:
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
-Discussed with Dr Horne, rheumatology- they are the same group that sees her OP but they are not seeing inpatient
-Started on IV Solumedrol 40 mg q8 hr
-ESR normal, will check CRP, ANCA, CXR, U/A
-Cont IV abx but might need to stop if cultures remain negative- ID consult
- Vascular surgery consult appreciated. Vascular studies unremarkable.
-Might need skin biopsy eventually
Rheumatoid Arthritis
- Current flare on higher doses of prednisone for the past week or so.
- On chronic Actemra and MTX.
- Continue folate supplementation.
- Follow for any new / worsening symptoms.
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
- s/p L iliac vein stenting and L 1st rib resection.
- No evidence of RUE DVT as noted above.
- Continue DAPT.
Bipolar Disorder
- Stable. Continue current outpatient med regimen.
Chronic Pain Syndrome
History of Opioid Abuse
- Continue outpatient med regimen including buprenorphine.
- Avoid other narcotic / opioid medications as able.
DVT Prophylaxis: Lovenox
Code Status: Full
Anticipated Discharge: 24 - 48 hours
Subjective/Interval History
-
Date of Service: August 20, 2023
Patient complains of edema of right upper extremity and extensive rash on the dorsum extending to her forearm. Afebrile
Objective Data
-
Labs:
Laboratory Results
08/19/23 08/20/23 08/20/23
23:26 06:09 06:10
WBC 13.0 H 10.2
Hgb 11.1 L 10.5 L
Hct 34.8 L 33.7 L
Plt Count 209 196
PT 13.2
INR 1.00
APTT 30.7
Sodium 136 134 L
Potassium 3.9 3.7
Chloride 100 103
Carbon Dioxide 27 29
BUN 15 16
Creatinine 0.7 0.7
Glucose 102 H 98
Calcium 8.9 8.5
Total Bilirubin 0.3
AST 26
ALT 37 H
Alkaline Phosphatase 45
Vital Signs:
Vital Signs
Temp Pulse Resp BP Pulse Ox
98.4 F 102 18 110/70 97
08/20/23 02:28 08/20/23 02:28 08/20/23 02:28 08/20/23 02:28 08/20/23 02:28
[2023-08-20] MEDS: PROTONIX IV 40 MG IV (08:52)
[2023-08-20] MEDS: COLACE 100 MG PO ×2 (08:56→20:18)
[2023-08-20] MEDS: DELTASONE 40 MG PO (08:56)
[2023-08-20] MEDS: SUBUTEX 8 MG SL ×2 (08:57→20:18)
[2023-08-20] MEDS: PLAVIX 75 MG PO (08:57)
[2023-08-20] MEDS: ZYRTEC 10 MG PO (08:58)
[2023-08-20] MEDS: PLAQUENIL 200 MG PO ×2 (08:58→20:18)
[2023-08-20] MEDS: FOLVITE 1 MG PO (09:03)
--- NOTE | 2023-08-20 09:35 | PHA.VAN.IN ---
Assessment
- Assessment
Renal Function: Appears similar to baseline
AUC Dosing Plan
- Dosing Variables
Dosing Weight (kg): 82
Dosing CrCl (ml/min): 117
Vd coefficient (L/kg): 0.7
- Empiric Dosing
Initial / Loading Dose: 2000mg - 08/19 06:13
Maintenance Regimen: Vanc 1250mg Q12H starting at 1800
Estimated AUC (mcg*h/mL): 462
Estimated Peak (mcg*h/mL): 30.9
Estimated Trough (mcg/ml): 10.7
Estimated Half Life (H): 6.8
- Monitoring
No levels ordered at this time: consider levels in next few days
Pharmacokinetics Vancomycin I
- -
Patient Age: 32
Patient Sex: Female
Vancomycin Day #: 1
Indication: Skin And Soft Tissue
Requesting Provider: Dr. Cantu
Pertinent Antimicrobial Allergies:
amoxicillin - rash
penicillins - rash
sulfonamide antibiotics - rash/vomiting
nitrofurantoin - rash
Height / Weight:
Height 5 ft 3 in
Actual Weight 81.647 kg
Pertinent Past Medical History: BMI ~32, RA (chronic immunosuppression)
- Vital Signs / Lab Results
Temp Pulse Resp BP Pulse Ox
98.4 F 102 18 110/70 97
08/20/23 02:28 08/20/23 02:28 08/20/23 02:28 08/20/23 02:28 08/20/23 02:28
Lab Results - Hematology
08/19/23 08/20/23
23:26 06:09
WBC 13.0 H 10.2
Lab Results - Chemistry
08/19/23 08/20/23
23:26 06:10
BUN 15 16
Creatinine 0.7 0.7
Estimated Creat Clear 117 117
Albumin 4.2
08/19/23 08/20/23
23:26 02:45
Lactic Acid 1.4 Cancelled
[2023-08-20 09:43] VITALS: BP 114/67
[2023-08-20 09:44] VITALS: BP 114/67; O2SAT 98
--- NOTE | 2023-08-20 10:41 | EDRN ---
Lab contacted in regards to HCG test, was informed that the test was not run yet. Urine was cancelled, new order being placed
[2023-08-20 10:53] LABS: HCG, Serum Qualitative Screen Negative
[2023-08-20] MEDS: TYLENOL 1000 MG PO (13:15)
[2023-08-20] MEDS: SOLU-MEDROL PF 40 MG IV ×2 (14:15→21:53)
[2023-08-20 15:00] VITALS: BP 148/91
--- NOTE | 2023-08-20 15:12 | CON.ID ---
Consultation
-
Date/Time Consultation Requested: 08/20/2023 1430
Date/Time Consultation Performed: 08/20/2023 1515
Requesting Provider: Dr. Omar Slater
Performing Provider: Dr. Nereyda Zelaya
Reason for Consultation: purpuric rash
Chief Complaint / Past History
Chief Complaint
Rash
History of Present Illness
52-year-old female with history of rheumatoid arthritis on Actemra monthly for the past 6 months, methotrexate, multiple DVTs, hx thoracic outlet syndrome, has history of IV drug use sober since 2016 who states that yesterday around 6:50 PM, she
noted several burning red small spots on the dorsum of her right hand. She came to the ER last night and she was under observation. The red lesions multiplied quickly up her arm and coalesced the back of her right hand. She was started on
methylprednisone and vancomycin this morning. The rash is not itching. The rash has a burning sensation. This is never happened before. No fever or chills. Positive sweats. No new medications or [id number] medications. On Thursday she had
felt left arm numbness and headache for which she took aspirin with resolution of the symptoms. She has had aspirin before. Recent rheumatoid arthritis flare and placed on prednisone taper. RA flare improved but now recurred. No injury to the
hand. No recent cuts to the hand. No ill contacts. Venous duplex negative for DVT. Arteriography normal.
Past History
Additional Past Medical History:
RA on MTX, hydrochloroquine, Actemra
multiple DVT
bipolar
Asthma
May-Thurner syndrome
Paget-Schroetter syndrome
Chronic pain
past hx IVDA (quit 2015), on Suboxone
Thoracic outlet syndrome s/p left cervical rib/first rib resection, subclavian artery repair (2018)
Left iliac vein angioplasty/stent (2020)
Allergy History:
adhesive [Adhesive] Allergy (Verified 08/19/23 19:20)
SENSITIVE
amoxicillin Allergy (Verified 08/19/23 19:20)
Rash
diphenhydramine HCl [From Benadryl] Allergy (Verified 08/19/23 19:20)
elevated heart rate
nitrofurantoin [From Macrobid] Allergy (Verified 08/19/23 19:20)
Rash
Penicillins Allergy (Verified 08/19/23 19:20)
Rash
promethazine [Promethazine] Allergy (Verified 08/19/23 19:20)
'Heart rate and BP went up'
red dye Allergy (Verified 08/19/23 19:20)
Rash
Sulfa (Sulfonamide Antibiotics) [Sulfa (Sulfonamides)] Allergy (Verified 08/19/23 19:20)
Rash and vomiting
yellow dye [Yellow Dye] Allergy (Verified 08/19/23 19:20)
Vomiting/Rash
Medications Reviewed: Yes
Current Antibiotics:
Vancomycin
Social History
Tobacco: Former Smoker (quit 4 years ago)
Alcohol: None
Drug: Former User (IVDA/opioid abuse quit 2015)
Family History
Family History: Not Pertinent
Review of Systems
Review of Systems
General: Negative Fever, Chills or Change in Appetite
HEENT: Negative Stiff Neck, Sinus Problems, Headache or Pharyngitis
Respiratory: Negative Dyspnea or Cough
Gasteroenterology: Other (no diarrhea); Negative Nausea or Vomiting
Genital / Urological: Negative Dysuria or Flank Pain
Endocrine: Fatigue
Neurological: Negative Headache or Dizziness
All systems: All other systems were reviewed and were negative
Vital Signs
Temp Pulse Resp BP Pulse Ox
98.4 F 104 20 114/67 98
08/20/23 02:28 08/20/23 09:43 08/20/23 09:43 08/20/23 09:43 08/20/23 09:43
Physical Exam
Physical Exam
Constitutional: No Acute Distress and Comfortable
Eyes: No Conjunctival Hemorrhage and Sclera Anicteric
Pharynx: Benign
Oral: No Thrush
Cardiovascular: Regular Rate and S1/S2
Pulmonary: Clear
Gastrointestinal: Soft, Non Tender, Non Distended and Normal Bowel Sounds
Extremities: Edema (BLE 2+ edema)
Skin: Other (Entire dorsum of hand with dark red hemorrhagic coalesced lesions, with surround smaller petechial lesions/papules extending up volar aspect of forearm. Lesions palpable. )
Neurological: AO x 3
Lab / Diagnostic Study Results
08/20/23 06:09
08/20/23 06:10
Abs Immat Gran (auto) 0.6 10^3/uL (0-0.05) H 08/19/23 23:26
Absolute Neuts (auto) 9.6 10^3/uL (1.4-6.5) H 08/19/23 23:26
Absolute Lymphs (auto) 1.7 10^3/uL (1.2-3.4) 08/19/23 23:26
Absolute Monos (auto) 0.9 10^3/uL (0.1-0.6) H 08/19/23 23:26
Absolute Basos (auto) 0.1 10^3/uL (0-0.2) 08/19/23 23:26
Immature Gran % 4.6 % (0-0.5) H 08/19/23 23:26
Neutrophils % 74.4 % (42.2-75.2) 08/19/23 23:26
Lymphocytes % 13.2 % (20.5-51.1) L 08/19/23 23:26
Monocytes % 6.9 % (1.7-9.3) 08/19/23 23:26
Eosinophils % 0.3 % (0-6) 08/19/23 23:26
Basophils % 0.6 % (0-2) 08/19/23 23:26
ESR 8 mm/hour (0-20) 08/20/23 06:09
PT 13.2 Sec (11.4-14.6) 08/19/23 23:26
INR 1.00 08/19/23 23:26
Lactic Acid Cancelled 08/20/23 02:45
C-Reactive Protein < 5.00 mg/L (0.0-10.00) 08/20/23 06:10
Microbiology Results
Micro:
08/20/23 06:09 MRSA Screen - Pending
Nose
08/20/23 00:40 Blood Culture - Pending
Blood/Venous
08/20/23 Peripheral vascular US: neg RUE DVT
08/20/23 RUE angiography: normal
08/20/23 CXR negative
Assessment / Plan
# Acute RUE palpable purpura
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
Unclear source. No new meds; ? RA flare; ?infection but afebrile, non-toxic appearing
-Await blood cultures.
- DC Vancomycin.
-Start empiric ceftriaxone for possible strep cellulitis (unlikely).
- Check Hepatitis C (h/o IVDU, quit 8 yrs ago).
# Immunocompromised host
RA on Actemra, MTX
# hx multiple DVT
# May-Thurner syndrome
# Paget-Schroetter syndrome
# Thoracic outlet syndrome s/p left cervical rib/first rib resection, subclavian artery repair (2018)
# Left iliac vein angioplasty/stent (2020)
- Imaging without RUE arterial or venous abnormalities
[2023-08-20] MEDS: ZANAFLEX 2 MG PO (17:00)
[2023-08-20] MEDS: LOVENOX 40 MG SC (17:02)
[2023-08-20] MEDS: ROCEPHIN 2000 MG IV (17:02)
[2023-08-20] MEDS: STERILE WATER FOR INJECTION 20 ML IV (17:03)
[2023-08-20] MEDS: FLUSH (NSS) 2 FLUSH IV (17:07)
[2023-08-20 17:32] VITALS: BMI 33.4
[2023-08-20 19:16] LABS: Urine Albumin Negative (Neg - Trace); Urine Bilirubin Negative (Negative); Urine Character Clear (Clear); Urine Color Yellow; Urine Glucose 1+ (Negative); Urine Ketone Negative (Negative); Urine Leukocyte Negative (Negative); Urine Nitrite Negative (Negative); Urine Occult Blood Trace (Negative); Urine Specific Gravity 1.015 (<1.030); Urine Urobilinogen Negative (Neg - 1+); Urine pH 6.5 (5.0-9.0)
[2023-08-20 19:42] LABS: Urine White Cell 0-2 /HPF (0-5)
[2023-08-20] MEDS: KLONOPIN 1 MG PO (21:54)
[2023-08-20 23:00] VITALS: BP 113/78
[2023-08-21] MEDS: TYLENOL 1000 MG PO ×2 (04:45→13:45)
[2023-08-21] MEDS: ZANAFLEX 2 MG PO ×2 (04:46→13:56)
[2023-08-21 05:10] LABS: % Basophils 0.5 % (0-2); % Immature Granulocytes 4.2 % (0-0.5); % Lymphocytes 3.1 % (20.5-51.1); % Monocytes 1.4 % (1.7-9.3); % Neutrophils 90.8 % (42.2-75.2); Absolute Basophils 0.1 10^3/uL (0-0.2); Absolute Immature Granulocytes 0.9 10^3/uL (0-0.05); Absolute Lymphocytes 0.7 10^3/uL (1.2-3.4); Absolute Monocytes 0.3 10^3/uL (0.1-0.6); Absolute Neutrophils 19.5 10^3/uL (1.4-6.5); Hemoglobin 11.9 g/dL (12.0-16.0); Mean Corp Hgb Conc. 32.2 g/dL (33.0-37.0); Mean Corpuscular Hgb 27.4 pg (27.0-31.0); Mean Corpuscular Volume 85.3 fL (81.0-99.0); Mean Platelet Volume 8.2 fL (7.4-10.4); Nucleated Red Blood Cells % 0.1 %; Platelet Count 224 10^3/uL (130-400); Red Blood Cell Count 4.34 10^6/uL (4.20-5.40); Red Cell Dist. Width 14.5 % (11.5-14.5); White Blood Cell Count 21.5 10^3/uL (4.8-10.8)
[2023-08-21 05:36] LABS: ALT (SGPT) 68 U/L (0-35); AST (SGOT) 55 U/L (14-36); Albumin 4.6 g/dl (3.5-5.0); Alkaline Phosphatase 53 U/L (38-126); Blood Urea Nitrogen 11 mg/dl (7-17); Calcium 9.5 mg/dl (8.4-10.2); Carbon Dioxide 26 mmol/L (22-30); Chloride 99 mmol/L (98-107); Estimated Creatinine Clearance > 125 ml/min; Glucose 156 mg/dl (70-99); Potassium 4.6 mmol/L (3.5-5.1); Sodium 135 mmol/L (135-145); Total Bilirubin 0.4 mg/dl (0.2-1.3); Total Protein 7.2 g/dl (6.3-8.2); eGFR > 60.00
[2023-08-21 05:41] LABS: C-Reactive Protein < 5.00 mg/L (0.0-10.00)
[2023-08-21] MEDS: SOLU-MEDROL PF 40 MG IV ×3 (06:07→21:50)
[2023-08-21 06:22] LABS: Hepatitis C Antibody Negative (Negative)
[2023-08-21 07:00] VITALS: BP 99/66
--- NOTE | 2023-08-21 09:14 | W.PN.HOSP.TC ---
Today's Communication/Plan
-
IV steroids. IV antibiotics
Assessment / Plan
Assessment / Plan
Physical Exam
General: Other (32y F in mild distress due to pain.)
HEENT: Moist mucous membranes and PERRLA
Respiratory: Clear; No Wheezes, Rales or Rhonchi
Cardiac: S1/S2 and Regular Rhythm; No Murmur
GI: Soft, Non Tender, Non Distended and Normal Bowel Sounds
Musculoskeletal: Other (RUE with tense, tender edema from the fingertips to the elbow. Confluent area of purpura over the dorsum of the hand with scattered satellite lesions. No increased warmth. No erythema.)
Neuro: AO x 3
Hematologic/Lymphatic: Other (Pulses are intact at the R wrist.)
A/P:
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
-Discussed with Dr Horne, rheumatology on 08/19.
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 She also recommended to reach out for possible
transfer to [facility].
-I reached out to [facility] for transfer and I discussed with Dr. Schafer and he cannot accept her in transfer (also they are in full capacity)-I asked if she can be on a waiting list but he said no.
-Cont on IV Solumedrol 40 mg q8 hr
-ESR normal, will check CRP, ANCA, CXR, U/A--> CRP normal, chest x-ray normal, UA with 15 RBCs and 1+ glucose, and ANCA pending.
-ID consult appreciated
-Cont IV abx, currently she is on IV Rocephin
-MRSA screen negative, blood cultures no growth so far.
- Vascular surgery consult appreciated. Vascular studies unremarkable.
-Might need skin biopsy eventually
Leukocytosis:
-Likely steroids related
-Monitor as needed
Rheumatoid Arthritis
- Current flare on higher doses of prednisone for the past week or so.
- On chronic Actemra and MTX.
- Continue folate supplementation.
- Follow for any new / worsening symptoms.
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
- s/p L iliac vein stenting and L 1st rib resection.
- No evidence of RUE DVT as noted above.
- Continue DAPT.
Bipolar Disorder
- Stable. Continue current outpatient med regimen.
Chronic Pain Syndrome
History of Opioid Abuse
- Continue outpatient med regimen including buprenorphine.
- Avoid other narcotic / opioid medications as able.
DVT Prophylaxis: Lovenox
Code Status: Full
Total time spent on today's encounter was 52 minutes which included time spent in counseling the patient/family regarding diagnosis and treatment plan as listed above, goals of care, and symptom management. Case was discussed with nursing staff,
specialists, and care coordinators/case management. All labs and imaging personally reviewed by me. Remainder the time spent in detailed review of previous records, lab data, imaging, and other medical provider documentation.
Anticipated Discharge: > 48 hours
Subjective/Interval History
-
Date of Service: August 21, 2023
Patient feels slightly better today. Afebrile
Objective Data
-
Labs:
Laboratory Results
08/21/23
04:40
WBC 21.5 H
Hgb 11.9 L
Hct 37.0
Plt Count 224
Sodium 135
Potassium 4.6
Chloride 99
Carbon Dioxide 26
BUN 11
Creatinine 0.5 L
Glucose 156 H
Calcium 9.5
Total Bilirubin 0.4
AST 55 H
ALT 68 H
Alkaline Phosphatase 53
Vital Signs:
Vital Signs
Temp Pulse Resp BP Pulse Ox
97.9 F 67 12 99/66 98
08/21/23 07:00 08/21/23 07:00 08/21/23 07:00 08/21/23 07:00 08/21/23 07:00
I&O
08/20/23 08/21/23 08/22/23
06:59 06:59 06:59
Intake Total 360 / 360
Balance 360 / 360
[2023-08-21] MEDS: TORADOL 15 MG IV ×2 (09:24→21:52)
[2023-08-21] MEDS: SUBUTEX 8 MG SL ×2 (09:25→19:58)
[2023-08-21] MEDS: PLAQUENIL 200 MG PO ×2 (09:26→19:58)
[2023-08-21] MEDS: PROTONIX IV 40 MG IV (09:26)
[2023-08-21] MEDS: COLACE 100 MG PO ×2 (09:26→19:57)
[2023-08-21] MEDS: ZYRTEC 10 MG PO (09:26)
[2023-08-21] MEDS: PLAVIX 75 MG PO (09:27)
[2023-08-21] MEDS: FOLVITE 1 MG PO (09:28)
--- NOTE | 2023-08-21 10:19 | CM ---
mental health case manager reviewed patient's chart and met with patient and patient reports that she lives in a 2nd floor apartment with her fijille and her 9 y.o daughter, patient is independent with adl's and ambulation, patient drives, patient has a
prescription plan and uses [facility] pharmacy
PCP: Dr. Edwards.
Plan; Home when stable.
[2023-08-21 11:51] VITALS: BP 121/85
[2023-08-21] MEDS: HYDROPHOR 1 APPLIC TOPICAL (14:23)
[2023-08-21 15:00] VITALS: BP 113/74
[2023-08-21 15:49] LABS: Urine Albumin Trace (Neg - Trace); Urine Bilirubin Negative (Negative); Urine Character Slightly Cloudy (Clear); Urine Color Yellow; Urine Glucose Negative (Negative); Urine Ketone Trace (Negative); Urine Leukocyte 2+ (Negative); Urine Nitrite Negative (Negative); Urine Occult Blood 1+ (Negative); Urine Specific Gravity 1.015 (<1.030); Urine Urobilinogen Negative (Neg - 1+)
[2023-08-21 15:59] LABS: Urine Squamous Cell >30 /LPF (Few); Urine White Cell 26-30 /HPF (0-5)
--- NOTE | 2023-08-21 17:41 | W.PN.ID1 ---
Date of Service
Date of Service: August 21, 2023
Today's Communication
continue ceftriaxone
edema control measures reviewed with patient, zuri wrap given
Assessment / Plan
# Acute RUE palpable purpura
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
Unclear source. No new meds; ? RA flare; ?infection but afebrile, non-toxic appearing
-Await blood cultures.
- continue empiric ceftriaxone for possible strep cellulitis (unlikely).
- Hepatitis C neg
# Immunocompromised host
RA on Actemra, MTX
# hx multiple DVT
# May-Thurner syndrome
# Paget-Schroetter syndrome
# Thoracic outlet syndrome s/p left cervical rib/first rib resection, subclavian artery repair (2018)
# Left iliac vein angioplasty/stent (2020)
- Imaging without RUE arterial or venous abnormalities
Chief Complaint
-: Other (rash)
Subjective / Review of Systems
edema prominent but better per patient
rash may be stabilzing
hep C negative
reactive leukocytosis noted
cr stable
Vital Signs / Physical Exam
Vital Signs
Vital Signs
Temp Pulse Resp BP Pulse Ox
98.3 F 86 16 113/74 96
08/21/23 15:00 08/21/23 15:00 08/21/23 15:00 08/21/23 15:00 08/21/23 15:00
Physical Exam
Constitutional: No Acute Distress
Cardiovascular: Regular Rate and S1/S2; Negative Murmur or Rub
Pulmonary: Clear and Symmetric; Negative Wheezes or Rales
Gastrointestinal: Soft, Non Tender, Non Distended and Normal Bowel Sounds
Skin: Warm, Dry and Rash (prominent nonblanching rash with edema R hand); Negative Jaundice
Objective Data
Lab Data
Lab Results
08/21/23 04:40
08/21/23 04:40
ESR 8 mm/hour (0-20) 08/20/23 06:09
PT 13.2 Sec (11.4-14.6) 08/19/23 23:26
INR 1.00 08/19/23 23:26
APTT 30.7 Sec (23.4-35.0) 08/19/23 23:26
Estimated Creat Clear > 125 ml/min 08/21/23 04:40
Lactic Acid Cancelled 08/20/23 02:45
Total Bilirubin 0.4 mg/dl (0.2-1.3) 08/21/23 04:40
AST 55 U/L (14-36) H 08/21/23 04:40
ALT 68 U/L (0-35) H 08/21/23 04:40
Alkaline Phosphatase 53 U/L (38-126) 08/21/23 04:40
C-Reactive Protein < 5.00 mg/L (0.0-10.00) 08/21/23 04:40
Most recent labs reviewed.
Micro Results:
08/21/23 15:38 Urine Culture - Pending
Urine
08/20/23 06:09 MRSA Screen - Final
Nose No Methicillin Resistant Staphylococcus aureus isolated.
08/20/23 00:40 Blood Culture - Preliminary
Blood/Venous No Growth in 24 hours- Final report to follow
08/20/23 Peripheral vascular US: neg RUE DVT
08/20/23 RUE angiography: normal
08/20/23 CXR negative
[2023-08-21] MEDS: STERILE WATER FOR INJECTION 20 ML IV (18:00)
[2023-08-21] MEDS: LOVENOX 40 MG SC (18:00)
[2023-08-21] MEDS: ROCEPHIN 2000 MG IV (18:00)
[2023-08-21] MEDS: FLUSH (NSS) 1 FLUSH IV (21:51)
[2023-08-21] MEDS: KLONOPIN 1 MG PO (21:51)
[2023-08-21 23:26] VITALS: BP 124/98
[2023-08-22] MEDS: ZANAFLEX 2 MG PO ×2 (01:18→17:18)
[2023-08-22] MEDS: SOLU-MEDROL PF 40 MG IV ×3 (06:13→21:48)
[2023-08-22] MEDS: TYLENOL 1000 MG PO ×2 (06:17→17:17)
[2023-08-22 07:30] VITALS: BP 121/70
[2023-08-22] MEDS: ZYRTEC 10 MG PO (07:57)
[2023-08-22] MEDS: PLAVIX 75 MG PO (07:57)
[2023-08-22] MEDS: SUBUTEX 8 MG SL ×2 (07:57→20:37)
[2023-08-22] MEDS: PROTONIX IV 40 MG IV (07:58)
[2023-08-22] MEDS: COLACE 100 MG PO (07:58)
[2023-08-22] MEDS: PLAQUENIL 200 MG PO ×2 (07:58→20:41)
[2023-08-22] MEDS: HYDROPHOR 1 APPLIC TOPICAL (08:09)
[2023-08-22 08:32] LABS: % Basophils 0.3 % (0-2); % Eosinophils 0.2 % (0-6); % Immature Granulocytes 4.4 % (0-0.5); % Lymphocytes 3.6 % (20.5-51.1); % Monocytes 4.8 % (1.7-9.3); % Neutrophils 86.7 % (42.2-75.2); Absolute Basophils 0.1 10^3/uL (0-0.2); Absolute Immature Granulocytes 1.1 10^3/uL (0-0.05); Absolute Lymphocytes 0.9 10^3/uL (1.2-3.4); Absolute Monocytes 1.2 10^3/uL (0.1-0.6); Hematocrit 33.7 % (37.0-47.0); Hemoglobin 10.8 g/dL (12.0-16.0); Mean Corpuscular Hgb 27.6 pg (27.0-31.0); Mean Corpuscular Volume 86.2 fL (81.0-99.0); Mean Platelet Volume 8.4 fL (7.4-10.4); Nucleated Red Blood Cells % 0 %; Platelet Count 236 10^3/uL (130-400); Red Blood Cell Count 3.91 10^6/uL (4.20-5.40); Red Cell Dist. Width 14.6 % (11.5-14.5); White Blood Cell Count 24.2 10^3/uL (4.8-10.8)
--- NOTE | 2023-08-22 08:44 | W.PN.HOSP.TC ---
Today's Communication/Plan
-
Cont iv steroids. Changed abx to oral.
Assessment / Plan
Assessment / Plan
Physical Exam
General: Other (32y F in mild distress due to pain.)
HEENT: Moist mucous membranes and PERRLA
Respiratory: Clear; No Wheezes, Rales or Rhonchi
Cardiac: S1/S2 and Regular Rhythm; No Murmur
GI: Soft, Non Tender, Non Distended and Normal Bowel Sounds
Musculoskeletal: Other (RUE with tense, tender edema from the fingertips to the elbow. Confluent area of purpura over the dorsum of the hand with scattered satellite lesions. No increased warmth. No erythema.)
Neuro: AO x 3
Hematologic/Lymphatic: Other (Pulses are intact at the R wrist.)
A/P:
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
-Discussed with [facility] rheumatology on 08/19.
-On 08/[address] Katie Rojo her own outpatient first aid officer--> she recommends to continue IV steroids over the weekend and then will taper per recommendations. She also recommended to reach out for possible transfer to [facility].
-I reached out to [facility] for transfer and I discussed with Dr. Schafer and he cannot accept her in transfer (also they are in full capacity)-I asked if she can be on a waiting list but he said no.
-Cont on IV Solumedrol 40 mg q8 hr
-ESR normal, will check CRP, ANCA, CXR, U/A--> CRP normal, chest x-ray normal, UA with 15 RBCs and 1+ glucose, and ANCA pending.
-ID consult appreciated
-Cont Abx and switching to po today
-MRSA screen negative, blood cultures no growth so far.
- Vascular surgery consult appreciated. Vascular studies unremarkable.
-Might need skin biopsy eventually
Leukocytosis:
-Likely steroids related
-Monitor as needed
Rheumatoid Arthritis
- Current flare on higher doses of prednisone for the past week or so.
- On chronic Actemra and MTX.
- Continue folate supplementation.
- Follow for any new / worsening symptoms.
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
- s/p L iliac vein stenting and L 1st rib resection.
- No evidence of RUE DVT as noted above.
- Continue DAPT.
Bipolar Disorder
- Stable. Continue current outpatient med regimen.
Chronic Pain Syndrome
History of Opioid Abuse
- Continue outpatient med regimen including buprenorphine.
- Avoid other narcotic / opioid medications as able.
DVT Prophylaxis: Lovenox
Code Status: Full
Total time spent on today's encounter was 52 minutes which included time spent in counseling the patient/family regarding diagnosis and treatment plan as listed above, goals of care, and symptom management. Case was discussed with nursing staff,
specialists, and care coordinators/case management. All labs and imaging personally reviewed by me. Remainder the time spent in detailed review of previous records, lab data, imaging, and other medical provider documentation.
Anticipated Discharge: > 48 hours
Subjective/Interval History
-
Date of Service: August 22, 2023
Patient shows some sx improvement, no fever.
Objective Data
-
Labs:
Laboratory Results
08/22/23
08:12
WBC 24.2 H
Hgb 10.8 L
Hct 33.7 L
Plt Count 236
Sodium Pending
Potassium Pending
Chloride Pending
Carbon Dioxide Pending
BUN Pending
Creatinine Pending
Glucose Pending
Calcium Pending
Vital Signs:
Vital Signs
Temp Pulse Resp BP Pulse Ox
98.1 F 74 16 121/70 96
08/22/23 07:30 08/22/23 08:16 04/13/24 08:16 08/22/23 07:30 08/22/23 08:16
I&O
08/21/23 08/22/23 08/23/23
06:59 06:59 06:59
Intake Total 360 / 360 360 / 360
Balance 360 / 360 360 / 360
[2023-08-22 09:05] LABS: Blood Urea Nitrogen 18 mg/dl (7-17); Calcium 9.1 mg/dl (8.4-10.2); Carbon Dioxide 25 mmol/L (22-30); Chloride 102 mmol/L (98-107); Estimated Creatinine Clearance > 125 ml/min; Glucose 160 mg/dl (70-99); Potassium 4.1 mmol/L (3.5-5.1); Sodium 135 mmol/L (135-145); eGFR > 60.00
[2023-08-22] MEDS: TORADOL 15 MG IV ×2 (11:21→22:04)
[2023-08-22] MEDS: ATIVAN 2 MG PO (11:21)
--- NOTE | 2023-08-22 13:51 | W.PN.ID1 ---
Date of Service
Date of Service: August 22, 2023
Today's Communication
switche to cefdinir
Assessment / Plan
# Acute RUE palpable purpura
# Leukocytosis - on high dose steroids
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
Unclear source. No new meds; ? RA flare; ?infection but afebrile, non-toxic appearing
- Await blood cultures
- urine culture 20K c albicans - contaminant
- switch to cefdinir (avoid aminocephalosporins given amoxicillin allergy)
- steroids per rheumatology
- Hepatitis C neg
# Immunocompromised host
RA on Actemra, MTX
# hx multiple DVT
# May-Thurner syndrome
# Paget-Schroetter syndrome
# Thoracic outlet syndrome s/p left cervical rib/first rib resection, subclavian artery repair (2018)
# Left iliac vein angioplasty/stent (2020)
- Imaging without RUE arterial or venous abnormalities
Chief Complaint
-: Other (rash)
Subjective / Review of Systems
afebrile
bp stable
progression of leukocytosis post steroids
cr 0.5
urine culture 20K c albicans - contaminant
less swelling, rash stable
Vital Signs / Physical Exam
Vital Signs
Vital Signs
Temp Pulse Resp BP Pulse Ox
98.1 F 74 16 121/70 96
08/22/23 07:30 08/22/23 08:16 08/22/23 08:16 08/22/23 07:30 08/22/23 08:16
Physical Exam
Constitutional: No Acute Distress
Cardiovascular: Regular Rate and S1/S2; Negative Murmur or Rub
Pulmonary: Clear and Symmetric; Negative Wheezes or Rales
Gastrointestinal: Soft, Non Tender, Non Distended and Normal Bowel Sounds
Skin: Warm, Dry and Rash (stable, nonblancing erythema on the hand; much less swollen); Negative Jaundice
Neurological: Awake
Objective Data
Lab Data
Lab Results
08/22/23 08:12
08/22/23 08:12
ESR 8 mm/hour (0-20) 08/20/23 06:09
PT 13.2 Sec (11.4-14.6) 08/19/23 23:26
INR 1.00 08/19/23 23:26
APTT 30.7 Sec (23.4-35.0) 08/19/23 23:26
Estimated Creat Clear > 125 ml/min 08/22/23 08:12
Lactic Acid Cancelled 08/20/23 02:45
Total Bilirubin 0.4 mg/dl (0.2-1.3) 08/21/23 04:40
AST 55 U/L (14-36) H 08/21/23 04:40
ALT 68 U/L (0-35) H 08/21/23 04:40
Alkaline Phosphatase 53 U/L (38-126) 08/21/23 04:40
C-Reactive Protein < 5.00 mg/L (0.0-10.00) 08/21/23 04:40
Most recent labs reviewed.
Micro Results:
08/21/23 15:38 Urine Culture - Final
Urine Joanne albicans
08/20/23 00:40 Blood Culture - Preliminary
Blood/Venous No Growth in 48 hours- Final report to follow
08/20/23 06:09 MRSA Screen - Final
Nose No Methicillin Resistant Staphylococcus aureus isolated.
08/20/23 Peripheral vascular US: neg RUE DVT
08/20/23 RUE angiography: normal
08/20/23 CXR negative
Care Review
Plan reviewed with: Physician (Dr Nohemy boo)
[2023-08-22 15:40] VITALS: BP 128/79
[2023-08-22] MEDS: LOVENOX 40 MG SC (17:12)
[2023-08-22] MEDS: COLACE PO ×2 (20:36→22:09)
[2023-08-22] MEDS: OMNICEF 300 MG PO (20:37)
[2023-08-22] MEDS: KLONOPIN 1 MG PO (21:49)
[2023-08-22 23:23] VITALS: BP 127/85
[2023-08-23 05:43] LABS: % Basophils 0.6 % (0-2); % Immature Granulocytes 6.3 % (0-0.5); % Lymphocytes 5.8 % (20.5-51.1); % Monocytes 7.6 % (1.7-9.3); % Neutrophils 79.7 % (42.2-75.2); Absolute Basophils 0.1 10^3/uL (0-0.2); Absolute Immature Granulocytes 1.4 10^3/uL (0-0.05); Absolute Lymphocytes 1.2 10^3/uL (1.2-3.4); Absolute Monocytes 1.6 10^3/uL (0.1-0.6); Absolute Neutrophils 17.2 10^3/uL (1.4-6.5); Hematocrit 33.9 % (37.0-47.0); Hemoglobin 10.3 g/dL (12.0-16.0); Mean Corp Hgb Conc. 30.4 g/dL (33.0-37.0); Mean Corpuscular Hgb 26.6 pg (27.0-31.0); Mean Corpuscular Volume 87.6 fL (81.0-99.0); Mean Platelet Volume 8.6 fL (7.4-10.4); Nucleated Red Blood Cells % 0 %; Platelet Count 226 10^3/uL (130-400); Red Blood Cell Count 3.87 10^6/uL (4.20-5.40); Red Cell Dist. Width 14.6 % (11.5-14.5); White Blood Cell Count 21.5 10^3/uL (4.8-10.8)
[2023-08-23 06:03] LABS: Blood Urea Nitrogen 17 mg/dl (7-17); Calcium 8.7 mg/dl (8.4-10.2); Carbon Dioxide 27 mmol/L (22-30); Chloride 101 mmol/L (98-107); Estimated Creatinine Clearance > 125 ml/min; Glucose 152 mg/dl (70-99); Sodium 135 mmol/L (135-145); eGFR > 60.00
[2023-08-23] MEDS: SOLU-MEDROL PF 40 MG IV ×2 (06:17→13:04)
[2023-08-23 07:35] VITALS: BP 126/78
[2023-08-23] MEDS: PLAQUENIL 200 MG PO ×2 (07:43→19:39)
[2023-08-23] MEDS: ZYRTEC 10 MG PO (07:44)
[2023-08-23] MEDS: OMNICEF 300 MG PO ×2 (07:44→19:39)
[2023-08-23] MEDS: PLAVIX 75 MG PO (07:44)
[2023-08-23] MEDS: SUBUTEX 8 MG SL ×2 (07:44→19:40)
[2023-08-23] MEDS: HYDROPHOR 1 APPLIC TOPICAL (07:44)
[2023-08-23] MEDS: PROTONIX 40 MG PO (07:44)
[2023-08-23] MEDS: COLACE PO ×2 (07:45→19:39)
--- NOTE | 2023-08-23 08:57 | W.PN.HOSP.TC ---
Today's Communication/Plan
-
Continue IV steroids. Oral antibiotics.
Assessment / Plan
Assessment / Plan
Physical Exam
General: Acutely ill. No acute distress. Nontoxic
HEENT: Moist mucous membranes and PERRLA
Respiratory: Clear; No Wheezes, Rales or Rhonchi
Cardiac: S1/S2 and Regular Rhythm; No Murmur
GI: Soft, Non Tender, Non Distended and Normal Bowel Sounds
Musculoskeletal: Other (RUE with tense, initially tender edema from the fingertips to the elbow and now improving. Confluent area of purpura over the dorsum of the hand with scattered satellite lesions. No increased warmth. Erythema improving.)
Neuro: AO x 3
Hematologic/Lymphatic: Other (Pulses are intact at the R wrist.)
A/P:
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
-Cont on IV Solu-Medrol 40 mg q8 hr--> will decrease Solu-Medrol 40 mg to every 12 hours today. Possible change to oral steroids tomorrow (per [facility] rheum).
-ESR normal, will check CRP, ANCA, CXR, U/A--> CRP normal, chest x-ray normal, UA with 15 RBCs and 1+ glucose, and ANCA pending.
-ID consult appreciated
-Cont Abx and switching to po since yesterday
-Discussed with [facility] rheumatology on 08/19.
-On 08/[address] Katie Rojo her own outpatient grove superintendent--> she recommends to continue IV steroids over the weekend and then will taper per recommendations. She also recommended to reach out for possible transfer to [facility].
-I reached out to [facility] for transfer and I discussed with Dr. Schafer and he cannot accept her in transfer (also they are in full capacity)-I asked if she can be on a waiting list but he said no.
-MRSA screen negative, blood cultures no growth so far.
- Vascular surgery consult appreciated. Vascular studies unremarkable.
-Might need skin biopsy eventually--> can check if dermatology can do biopsy tomorrow morning (they do not come nor they are available over the weekend).
Leukocytosis:
-Likely steroids related
-Monitor as needed
Rheumatoid Arthritis
- Current flare on higher doses of prednisone for the past week or so.
- On chronic Actemra and MTX.
- Continue folate supplementation.
- Follow for any new / worsening symptoms.
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
- s/p L iliac vein stenting and L 1st rib resection.
- No evidence of RUE DVT as noted above.
- Continue DAPT.
Bipolar Disorder
- Stable. Continue current outpatient med regimen.
Chronic Pain Syndrome
History of Opioid Abuse
- Continue outpatient med regimen including buprenorphine.
- Avoid other narcotic / opioid medications as able.
DVT Prophylaxis: Lovenox
Code Status: Full
Anticipated Discharge: 24 - 48 hours
Subjective/Interval History
-
Date of Service: August 23, 2023
Patient feels better today. Less edema and erythema/rash somewhat improving RUE. Afebrile.
Objective Data
-
Labs:
Laboratory Results
08/23/23
04:57
WBC 21.5 H
Hgb 10.3 L
Hct 33.9 L
Plt Count 226
Sodium 135
Potassium 4.0
Chloride 101
Carbon Dioxide 27
BUN 17
Creatinine 0.5 L
Glucose 152 H
Calcium 8.7
Vital Signs:
Vital Signs
Temp Pulse Resp BP Pulse Ox
98.8 F 72 16 126/78 97
08/23/23 07:35 08/23/23 07:35 08/23/23 07:35 08/23/23 07:35 08/23/23 07:35
I&O
08/22/23 08/23/23 08/24/23
06:59 06:59 06:59
Intake Total 360 / 360 1320 / 1320
Balance 360 / 360 1320 / 1320
Review of Systems
-
All other systems: Reviewed and negative
[2023-08-23] MEDS: FOLVITE 1 MG PO (09:17)
[2023-08-23] MEDS: TORADOL 15 MG IV ×2 (11:21→21:30)
[2023-08-23] MEDS: ZANAFLEX 2 MG PO (11:21)
[2023-08-23 16:05] LABS: Myeloperoxidase Antibody 0 AU/mL (0-19); Serine Protease-3, IgG 0 AU/mL (0-19)
[2023-08-23 16:23] VITALS: BP 146/72
[2023-08-23] MEDS: LOVENOX 40 MG SC (17:11)
[2023-08-23] MEDS: ZOFRAN 4 MG IV (17:30)
[2023-08-23] MEDS: KLONOPIN 1 MG PO (21:30)
[2023-08-23 23:00] VITALS: BP 126/84
[2023-08-24] MEDS: SOLU-MEDROL PF 40 MG IV (02:06)
[2023-08-24] MEDS: ZANAFLEX 2 MG PO (02:08)
[2023-08-24 05:20] LABS: % Basophils 0.5 % (0-2); % Immature Granulocytes 9.3 % (0-0.5); % Lymphocytes 7.7 % (20.5-51.1); % Monocytes 7.1 % (1.7-9.3); % Neutrophils 75.4 % (42.2-75.2); Absolute Basophils 0.1 10^3/uL (0-0.2); Absolute Immature Granulocytes 1.8 10^3/uL (0-0.05); Absolute Lymphocytes 1.5 10^3/uL (1.2-3.4); Absolute Monocytes 1.4 10^3/uL (0.1-0.6); Absolute Neutrophils 14.8 10^3/uL (1.4-6.5); Hematocrit 32.5 % (37.0-47.0); Hemoglobin 10.4 g/dL (12.0-16.0); Mean Corpuscular Hgb 27.2 pg (27.0-31.0); Mean Corpuscular Volume 84.9 fL (81.0-99.0); Mean Platelet Volume 8.5 fL (7.4-10.4); Nucleated Red Blood Cells % 0.1 %; Platelet Count 237 10^3/uL (130-400); Red Blood Cell Count 3.83 10^6/uL (4.20-5.40); Red Cell Dist. Width 14.5 % (11.5-14.5); White Blood Cell Count 19.6 10^3/uL (4.8-10.8)
[2023-08-24 05:57] LABS: ALT (SGPT) 52 U/L (0-35); AST (SGOT) 29 U/L (14-36); Albumin 3.8 g/dl (3.5-5.0); Alkaline Phosphatase 55 U/L (38-126); Blood Urea Nitrogen 18 mg/dl (7-17); Calcium 8.7 mg/dl (8.4-10.2); Carbon Dioxide 26 mmol/L (22-30); Chloride 104 mmol/L (98-107); Estimated Creatinine Clearance > 125 ml/min; Glucose 139 mg/dl (70-99); Potassium 4.2 mmol/L (3.5-5.1); Sodium 134 mmol/L (135-145); Total Bilirubin 0.2 mg/dl (0.2-1.3); Total Protein 6.2 g/dl (6.3-8.2); eGFR > 60.00
[2023-08-24 07:30] VITALS: BP 125/82
[2023-08-24] MEDS: TORADOL 15 MG IV (08:04)
[2023-08-24] MEDS: HYDROPHOR 1 APPLIC TOPICAL (08:05)
[2023-08-24] MEDS: ZYRTEC 10 MG PO (08:05)
[2023-08-24] MEDS: PLAQUENIL 200 MG PO (08:05)
[2023-08-24] MEDS: PROTONIX 40 MG PO (08:05)
[2023-08-24] MEDS: FOLVITE 1 MG PO (08:05)
[2023-08-24] MEDS: PLAVIX 75 MG PO (08:05)
[2023-08-24] MEDS: COLACE 100 MG PO (08:05)
[2023-08-24] MEDS: OMNICEF 300 MG PO (08:05)
[2023-08-24] MEDS: SUBUTEX 8 MG SL (08:05)
[2023-08-24] MEDS: ZOFRAN 4 MG IV (08:25)
--- NOTE | 2023-08-24 11:01 | W.DCSUMMARY ---
Discharge Summary
Discharge Data
Date of Admission: 08/20/23
Date of Discharge: 08/24/23
-
Pending Results: No
Hospital Course
32 years old female presented with right upper extremity edema and palpable purpura. Initial diagnosis was possible vasculitis. Patient was evaluated by vascular surgery. Vascular studies were unremarkable. Patient had negative blood cultures.
She had mild leukocytosis. She was given empiric antibiotics with no improvement. Infectious disease doctor was consulted and recommended to continue with elevation of the extremity and empiric antibiotic. Patient followed with turning machine operator helper
Katie Rojo and she was notified. Patient was started on empiric intravenous steroid for possible leukocytoclastic vasculitis. Attempt to transfer the patient to [facility] for dermatology consultation was not
successful. The hospital did not have available dermatology consultation. Patient started to have significant improvement with resolution of the erythema and swelling of the extremity. No vascular compromise. No compromise to the movement of the
fingers. Patient remained nontoxic-appearing. She was able to tolerate diet. Infectious disease doctor recommended to switch to cefdinir upon discharge. Patient was advised to follow-up with dermatology as outpatient and follow-up with her
primary turning machine operator helper. Patient reported vaginal itching and requested antifungal treatment. Patient remained hemodynamically stable and was discharged in stable condition. She was given a prescription for prophylactic Protonix and prednisone.
Physical Exam
General: not acutely ill. No acute distress. Nontoxic
HEENT: Moist mucous membranes and PERRLA
Respiratory: Clear; No Wheezes, Rales or Rhonchi
Cardiac: S1/S2 and Regular Rhythm; No Murmur
GI: Soft, Non Tender, Non Distended and Normal Bowel Sounds
Musculoskeletal: Other (RUE with not tense, non tender edema from the fingertips to the elbow and now improving. No increased warmth. Erythema improving.
Neuro: AO x 3, no focal. Gait is normal.
Hematologic/Lymphatic: Other (Pulses are intact at the R wrist.)
Psych: calm, no agitation
Total discharge time spent to see patient, examine the patient on the floor, review data and lab results, discuss discharge plan with patient, nursing staff around 65 minutes
Discharge Plan
-
Patient Disposition: Home (Routine Discharge)
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
please follow with dermatology
Vaginal fungal infection
Diet: As tolerated
Referrals:
Bashir Edwards MD [Family Provider] -
Marlee Arriaga DO [Active] - in one to two weeks
Prescriptions:
New
clopidogrel 75 mg Tablet
75 mg PO DAILY Qty: 30 0RF
pantoprazole 40 mg Tablet,Delayed Release (Dr/Ec)
40 mg PO DAILY Qty: 30 0RF
cefdinir 300 mg Capsule
300 mg PO Q12 Qty: 10 0RF
fluconazole 100 mg tablet
100 mg PO DAILY Qty: 2 0RF
prednisone 10 mg tablet
40 mg PO DAILY Qty: 30 0RF
Rx Instructions:
40 mg X2 days,30 mg X 2 days, 20 mg X days then back on 10 mg daily
Continued
folic acid 1 MG tablet
1 mg PO SUMOTUTHFRSA
Patient Comments:
every day but Thursday
Rx Instructions:
do not take
tizanidine 2 MG tablet
2 mg PO Q8HPRN PRN (Reason: pain)
cetirizine 10 MG tablet
10 mg PO DAILY
acetaminophen [Tylenol Extra Strength] 500 MG tablet
1,000 mg PO Q6HPRN PRN (Reason: pain)
dextroamphetamine-amphetamine [Adderall] 20 MG tablet
10 mg PO BIDPRN PRN (Reason: adhd)
hydroxychloroquine 200 MG tablet
200 mg PO BID
buprenorphine HCl 8 MG tablet, sublingual
8 mg sublingual BID
Rx Instructions:
patient can not have the orange colored tablets, makes her throw up, patient had meds with her
levalbuterol tartrate 1 PUFF HFA aerosol inhaler
2 puff inhalation R Q4HPRN PRN (Reason: sob)
clonazepam [Klonopin] 1 mg Tablet
1 mg PO HS
lorazepam 2 mg Tablet
2 mg PO BIDPRN PRN (Reason: anxiety)
Actemra 200 mg/10 mL (20 mg/mL) Solution
200 mg IV Q4W
clopidogrel [Plavix] 75 mg Tablet
75 mg PO HS
methotrexate sodium (PF) 25 mg/mL Solution
2 mg IM WE
Medical Marijuana
0.5 patch topical BIDPRN PRN (Reason: hips)
Discontinued
prednisone 5 MG tablet
10 mg PO QPM
Rx Instructions:
patient been doing taper starting at 60mg but normally just on 10mg
Discharge Orders:
Discharge Patient (As Directed); Ordered 08/24/23
Ordered By: Kristopher Julian
Discharge Date and Time
Print Language: BULGARIAN
--- NOTE | 2023-08-24 11:20 | CM ---
Chart reviewed and plan is to home when stable. Patient lives with fiancee.
Plan; Home when stable.
[2023-08-24] MEDS: DIFLUCAN 100 MG PO (11:34)
[2023-08-24] MEDS: PREVNAR 20 0.5 ML IM (11:35)
--- NOTE | 2023-08-24 13:25 | W.PN.ID1 ---
Date of Service
Date of Service: August 24, 2023
Today's Communication
Continue empiric cefdinir 300mg po bid x 5 more days.
Assessment / Plan
# Acute RUE palpable purpura, resolving
# Leukocytosis - on high dose steroids
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
Unclear source. No new meds; ? RA flare; ?infection but afebrile, non-toxic appearing
- blood cultures negative
- Hepatitis C neg
- urine culture 20K c albicans - contaminant
- steroids per rheumatology
- Continue empiric cefdinir 300mg po bid x 5 more days.
# Immunocompromised host
RA on Actemra, MTX
# hx multiple DVT
# May-Thurner syndrome
# Paget-Schroetter syndrome
# Thoracic outlet syndrome s/p left cervical rib/first rib resection, subclavian artery repair (2018)
# Left iliac vein angioplasty/stent (2020)
- Imaging without RUE arterial or venous abnormalities
Chief Complaint
-: Other (rash)
Subjective / Review of Systems
hand and arm much improved.
Vital Signs / Physical Exam
Vital Signs
Vital Signs
Temp Pulse Resp BP Pulse Ox
98.0 F 97 18 125/82 96
08/24/23 07:30 08/24/23 07:30 08/24/23 07:30 08/24/23 07:30 08/24/23 07:30
Physical Exam
Constitutional: Comfortable
Skin: Other (Dorsum of right hand to arm resolving purpuric rash/lesions)
Neurological: AO x 3
Lines: Port (intact)
Objective Data
Lab Data
Lab Results
08/24/23 04:54
08/24/23 04:54
ESR 8 mm/hour (0-20) 08/20/23 06:09
PT 13.2 Sec (11.4-14.6) 08/19/23 23:26
INR 1.00 08/19/23 23:26
APTT 30.7 Sec (23.4-35.0) 08/19/23 23:26
Estimated Creat Clear > 125 ml/min 08/24/23 04:54
Lactic Acid Cancelled 08/20/23 02:45
Total Bilirubin 0.2 mg/dl (0.2-1.3) 08/24/23 04:54
AST 29 U/L (14-36) 08/24/23 04:54
ALT 52 U/L (0-35) H 08/24/23 04:54
Alkaline Phosphatase 55 U/L (38-126) 08/24/23 04:54
C-Reactive Protein < 5.00 mg/L (0.0-10.00) 08/21/23 04:40
Most recent labs reviewed.
Micro Results:
08/20/23 00:40 Blood Culture - Preliminary
Blood/Venous No Growth in 4 days- Final report to follow
08/21/23 15:38 Urine Culture - Final
Urine Joanne albicans
08/20/23 06:09 MRSA Screen - Final
Nose No Methicillin Resistant Staphylococcus aureus isolated.
08/20/23 Peripheral vascular US: neg RUE DVT
08/20/23 RUE angiography: normal
08/20/23 CXR negative
[2023-08-24 13:29] VITALS: BP 135/87
== END 2023-08-24 13:31 | disposition home or self-care (01) | DRG 546 ==
LOC: 4 WEST ACU 04:24
PROVIDERS: Hospitalist; Registered Nurse; ADMITTING PHYSICIAN Hospitalist; ATTENDING PHYSICIAN Internal Medicine; EMERGENCY PHYSICIAN Emergency Medicine; FAMILY PHYSICIAN Family Medicine; OTHER PHYSICIAN Internal Medicine Infectious Disease; OTHER PHYSICIAN Surgery Vascular Surgery
PROC: 3E0234Z Introduction of Serum, Toxoid and Vaccine into Muscle, Percutaneous Approach (ICD-10-PCS; 2023-08-24)
DX: M31.0 Hypersensitivity angiitis (principal); D84.821 Immunodeficiency due to drugs; F11.20 Opioid dependence, uncomplicated; M06.00 Rheumatoid arthritis without rheumatoid factor, unspecified site; F31.9 Bipolar disorder, unspecified; G89.4 Chronic pain syndrome; I10 Essential (primary) hypertension; D69.2 Other nonthrombocytopenic purpura; G54.0 Brachial plexus disorders; F17.200 Nicotine dependence, unspecified, uncomplicated; E66.9 Obesity, unspecified; G43.909 Migraine, unspecified, not intractable, without status migrainosus; K21.9 Gastro-esophageal reflux disease without esophagitis; Q76.5 Cervical rib; Z87.11 Personal history of peptic ulcer disease; Z87.01 Personal history of pneumonia (recurrent); Z87.442 Personal history of urinary calculi; Z79.631 Long term (current) use of antimetabolite agent; Z79.02 Long term (current) use of antithrombotics/antiplatelets; Z68.33 Body mass index [BMI] 33.0-33.9, adult; Z23 Encounter for immunization; Z88.0 Allergy status to penicillin; Z88.2 Allergy status to sulfonamides; Z88.8 Allergy status to other drugs, medicaments and biological substances; Z88.3 Allergy status to other anti-infective agents; Z91.02 Food additives allergy status; Z86.718 Personal history of other venous thrombosis and embolism
CPT/HCPCS: 71046; 73206; 80048; 80053; 81003; 81015; 82550; 83516; 83605; 84443; 84703; 85025; 85027; 85610; 85652; 85730; 86140; 86803; 87040; 87070; 87086; 90677; 93971; 96374; 96375; 97116; 97162; 97530; 99284; G0009; Q9967

== ENCOUNTER → 2023-09-14 09:52 | Outpatient (REF) | payer BC, SELFPAY ==
[2023-09-14 13:10] LABS: % Basophils 0.6 % (0-2); % Eosinophils 0.6 % (0-6); % Immature Granulocytes 9.6 % (0-0.5); % Lymphocytes 13.9 % (20.5-51.1); % Monocytes 5.3 % (1.7-9.3); Absolute Immature Granulocytes 0.6 10^3/uL (0-0.05); Absolute Lymphocytes 0.9 10^3/uL (1.2-3.4); Absolute Monocytes 0.3 10^3/uL (0.1-0.6); Absolute Neutrophils 4.5 10^3/uL (1.4-6.5); Hematocrit 32.3 % (37.0-47.0); Hemoglobin 10.4 g/dL (12.0-16.0); Mean Corp Hgb Conc. 32.2 g/dL (33.0-37.0); Mean Corpuscular Hgb 27.4 pg (27.0-31.0); Mean Platelet Volume 8.6 fL (7.4-10.4); Nucleated Red Blood Cells % 0 %; Platelet Count 276 10^3/uL (130-400); White Blood Cell Count 6.4 10^3/uL (4.8-10.8)
[2023-09-14 13:50] LABS: Erythrocyte Sed Rate 10 mm/hour (0-20)
[2023-09-14 14:09] LABS: ALT (SGPT) 31 U/L (0-35); AST (SGOT) 26 U/L (14-36); Albumin 4.5 g/dl (3.5-5.0); Alkaline Phosphatase 43 U/L (38-126); Blood Urea Nitrogen 14 mg/dl (7-17); Calcium 9.1 mg/dl (8.4-10.2); Carbon Dioxide 26 mmol/L (22-30); Chloride 103 mmol/L (98-107); Glucose 119 mg/dl (70-99); Sodium 134 mmol/L (135-145); Total Bilirubin 0.3 mg/dl (0.2-1.3); eGFR > 60.00
[2023-09-14 14:16] LABS: C-Reactive Protein < 5.00 mg/L (0.0-10.00)
== END ==
LOC: RAD 09:52
PROVIDERS: ATTENDING PHYSICIAN Surgery Vascular Surgery; FAMILY PHYSICIAN Family Medicine; OTHER PHYSICIAN Physician Assistant; REFERRING PHYSICIAN Physician Assistant
DX: G54.0 Brachial plexus disorders (principal); I87.1 Compression of vein; M25.559 Pain in unspecified hip; M54.50 Low back pain, unspecified; I82.B19 Acute embolism and thrombosis of unspecified subclavian vein; M06.00 Rheumatoid arthritis without rheumatoid factor, unspecified site; M06.4 Inflammatory polyarthropathy; Z51.81 Encounter for therapeutic drug level monitoring
CPT/HCPCS: 36415; 72114; 73523; 80053; 85025; 85652; 86140; 93923; 93930; 93978

== ENCOUNTER → 2023-10-22 19:20 | Outpatient (REF) | payer BC, SELFPAY | LOC: MRI 19:20 | PROVIDERS: ATTENDING PHYSICIAN Nurse Practitioner Adult Health; FAMILY PHYSICIAN Family Medicine | DX: M54.16 Radiculopathy, lumbar region (principal); M54.50 Low back pain, unspecified; D89.40 Mast cell activation, unspecified | CPT/HCPCS: 72148 ==

== ENCOUNTER 2023-11-03 11:00 | Outpatient (RCR) | payer BC, SELFPAY ==
[2023-11-03 12:14] VITALS: BP 133/91
== END 2023-11-04 10:36 | disposition home or self-care (01) ==
LOC: OID 11:00
PROVIDERS: ATTENDING PHYSICIAN Internal Medicine Rheumatology; FAMILY PHYSICIAN Family Medicine
DX: M06.09 Rheumatoid arthritis without rheumatoid factor, multiple sites (principal); M31.0 Hypersensitivity angiitis; M05.20 Rheumatoid vasculitis with rheumatoid arthritis of unspecified site; R26.9 Unspecified abnormalities of gait and mobility
CPT/HCPCS: 96523

== ENCOUNTER 2023-12-01 11:30 | Outpatient (RCR) | payer BC, SELFPAY ==
[2023-12-01 11:43] VITALS: BP 127/89
== END 2023-12-02 09:57 | disposition home or self-care (01) ==
LOC: OID 11:30
PROVIDERS: ATTENDING PHYSICIAN Internal Medicine Rheumatology; FAMILY PHYSICIAN Family Medicine
DX: M06.09 Rheumatoid arthritis without rheumatoid factor, multiple sites (principal); M05.20 Rheumatoid vasculitis with rheumatoid arthritis of unspecified site; M31.0 Hypersensitivity angiitis; R26.9 Unspecified abnormalities of gait and mobility
CPT/HCPCS: 96523

== ENCOUNTER 2024-01-05 10:48 | Outpatient (RCR) | payer BC, SELFPAY ==
[2024-01-05 11:05] VITALS: BP 127/89
[2024-01-05 12:53] LABS: Hematocrit 31.9 % (37.0-47.0); Hemoglobin 10.2 g/dL (12.0-16.0); Mean Corpuscular Hgb 27.2 pg (27.0-31.0); Mean Corpuscular Volume 85.1 fL (81.0-99.0); Mean Platelet Volume 8.7 fL (7.4-10.4); Platelet Count 267 10^3/uL (130-400); Red Blood Cell Count 3.75 10^6/uL (4.20-5.40); Red Cell Dist. Width 17.3 % (11.5-14.5); White Blood Cell Count 9.6 10^3/uL (4.8-10.8)
[2024-01-05 13:06] LABS: ALT (SGPT) 36 U/L (0-35); AST (SGOT) 28 U/L (14-36); Albumin 3.8 g/dl (3.5-5.0); Alkaline Phosphatase 76 U/L (38-126); Blood Urea Nitrogen 13 mg/dl (7-17); Calcium 9.3 mg/dl (8.4-10.2); Carbon Dioxide 30 mmol/L (22-30); Chloride 100 mmol/L (98-107); Glucose 109 mg/dl (70-99); Potassium 3.7 mmol/L (3.5-5.1); Sodium 138 mmol/L (135-145); Total Bilirubin 0.4 mg/dl (0.2-1.3); Total Protein 6.1 g/dl (6.3-8.2); eGFR > 60.00
[2024-01-05 13:16] LABS: Segmented Neutrophils 75 % (42-75)
[2024-01-05 13:17] LABS: Absolute Neutrophils -Man Diff 7.3 10^3/uL (1.4-6.5); Band Neutrophils 2 % (0-3); Eosinophils 1 % (0-6); Lymphocytes 11 % (20-51); Monocytes 4 % (2-9)
[2024-01-05 13:18] LABS: Metamyelocytes 3 % (-); Myelocytes 3 % (-); Normal RBC Morphology No; Nucleated Red Blood Cells 1 (-); Platelets Checked YES
[2024-01-05 13:20] LABS: Anisocytosis Slight; Polychromasia Slight
[2024-01-05 13:21] LABS: Macrocytosis Slight; Target Cells FEW
[2024-01-05 13:22] LABS: Total Cells Counted 100
[2024-01-05 13:23] LABS: Hypersegmented Neutrophil FEW
[2024-01-05 13:26] LABS: Erythrocyte Sed Rate 18 mm/hour (0-20)
[2024-01-05 14:00] LABS: Vitamin B12 259 pg/ml (239-931)
== END 2024-01-06 09:20 | disposition home or self-care (01) ==
LOC: OID 10:48
PROVIDERS: ATTENDING PHYSICIAN Internal Medicine Rheumatology; FAMILY PHYSICIAN Family Medicine; OTHER PHYSICIAN Psychiatry & Neurology Neurology
DX: M31.0 Hypersensitivity angiitis (principal); M05.20 Rheumatoid vasculitis with rheumatoid arthritis of unspecified site; R26.9 Unspecified abnormalities of gait and mobility
CPT/HCPCS: 80053; 82607; 83921; 85025; 85652; 86140; 96523

== ENCOUNTER 2024-03-16 13:11 | Outpatient (RCR) | payer BC, SELFPAY ==
[2024-03-16 13:37] VITALS: BP 148/84
[2024-03-16 13:58] LABS: % Basophils 0.2 % (0-2); % Eosinophils 0.4 % (0-6); % Immature Granulocytes 2.1 % (0-0.5); % Lymphocytes 11.1 % (20.5-51.1); % Monocytes 7.2 % (1.7-9.3); Absolute Immature Granulocytes 0.2 10^3/uL (0-0.05); Absolute Lymphocytes 1.2 10^3/uL (1.2-3.4); Absolute Monocytes 0.8 10^3/uL (0.1-0.6); Absolute Neutrophils 8.2 10^3/uL (1.4-6.5); Hematocrit 33.3 % (37.0-47.0); Hemoglobin 10.3 g/dL (12.0-16.0); Mean Corp Hgb Conc. 30.9 g/dL (33.0-37.0); Mean Corpuscular Hgb 26.6 pg (27.0-31.0); Mean Platelet Volume 8.4 fL (7.4-10.4); Platelet Count 317 10^3/uL (130-400); Red Blood Cell Count 3.87 10^6/uL (4.20-5.40); Red Cell Dist. Width 16.4 % (11.5-14.5); White Blood Cell Count 10.4 10^3/uL (4.8-10.8)
[2024-03-16 15:36] LABS: Erythrocyte Sed Rate 20 mm/hour (0-20)
[2024-03-16 15:43] LABS: ALT (SGPT) 20 U/L (0-35); AST (SGOT) 21 U/L (14-36); Albumin 4.1 g/dl (3.5-5.0); Alkaline Phosphatase 60 U/L (38-126); Blood Urea Nitrogen 8 mg/dl (7-17); Carbon Dioxide 29 mmol/L (22-30); Chloride 98 mmol/L (98-107); Glucose 103 mg/dl (70-99); Potassium 3.5 mmol/L (3.5-5.1); Sodium 141 mmol/L (135-145); Total Bilirubin 0.2 mg/dl (0.2-1.3); Total Protein 6.6 g/dl (6.3-8.2); eGFR > 60.00
[2024-03-16 16:33] LABS: Vitamin B12 > 1000 pg/ml (239-931)
== END 2024-03-17 10:45 | disposition home or self-care (01) ==
LOC: OID 13:11
PROVIDERS: ATTENDING PHYSICIAN Internal Medicine Rheumatology; FAMILY PHYSICIAN Family Medicine; OTHER PHYSICIAN Psychiatry & Neurology Neurology
DX: M31.0 Hypersensitivity angiitis (principal); R26.9 Unspecified abnormalities of gait and mobility; M06.09 Rheumatoid arthritis without rheumatoid factor, multiple sites
CPT/HCPCS: 36591; 80053; 82607; 83921; 85025; 85652; 86140

== ENCOUNTER 2024-05-18 15:02 | Outpatient (RCR) | payer BC, SELFPAY ==
[2024-05-18 15:12] VITALS: BP 133/77
== END 2024-05-19 09:40 | disposition home or self-care (01) ==
LOC: OID 15:02
PROVIDERS: ATTENDING PHYSICIAN Internal Medicine Rheumatology; FAMILY PHYSICIAN Family Medicine; OTHER PHYSICIAN Psychiatry & Neurology Neurology
DX: M06.09 Rheumatoid arthritis without rheumatoid factor, multiple sites (principal); M31.0 Hypersensitivity angiitis; M05.20 Rheumatoid vasculitis with rheumatoid arthritis of unspecified site; R26.9 Unspecified abnormalities of gait and mobility
CPT/HCPCS: 96523

== ENCOUNTER 2024-06-16 14:38 | Outpatient (RCR) | payer BC, SELFPAY ==
[2024-06-16 14:52] VITALS: BP 111/72
== END 2024-06-17 09:04 | disposition home or self-care (01) ==
LOC: OID 14:38
PROVIDERS: ATTENDING PHYSICIAN Internal Medicine Rheumatology; FAMILY PHYSICIAN Family Medicine; OTHER PHYSICIAN Psychiatry & Neurology Neurology
DX: M31.0 Hypersensitivity angiitis (principal); M05.20 Rheumatoid vasculitis with rheumatoid arthritis of unspecified site; R26.9 Unspecified abnormalities of gait and mobility
CPT/HCPCS: 96523

== ENCOUNTER 2024-07-13 15:07 | Outpatient (RCR) | payer BC, SELFPAY ==
[2024-07-13 15:18] VITALS: BP 129/86
[2024-07-13 15:33] LABS: % Basophils 0.4 % (0-2); % Eosinophils 0.7 % (0-6); % Immature Granulocytes 1.8 % (0-0.5); % Lymphocytes 11.8 % (20.5-51.1); % Monocytes 6.9 % (1.7-9.3); % Neutrophils 78.4 % (42.2-75.2); Absolute Eosinophils 0.1 10^3/uL (0-0.7); Absolute Immature Granulocytes 0.2 10^3/uL (0-0.05); Absolute Lymphocytes 1.1 10^3/uL (1.2-3.4); Absolute Monocytes 0.6 10^3/uL (0.1-0.6); Absolute Neutrophils 7.3 10^3/uL (1.4-6.5); Hematocrit 34.1 % (37.0-47.0); Hemoglobin 10.8 g/dL (12.0-16.0); Mean Corp Hgb Conc. 31.7 g/dL (33.0-37.0); Mean Corpuscular Hgb 25.9 pg (27.0-31.0); Mean Corpuscular Volume 81.8 fL (81.0-99.0); Mean Platelet Volume 8.1 fL (7.4-10.4); Platelet Count 340 10^3/uL (130-400); Red Blood Cell Count 4.17 10^6/uL (4.20-5.40); Red Cell Dist. Width 16.2 % (11.5-14.5); White Blood Cell Count 9.3 10^3/uL (4.8-10.8)
[2024-07-13 16:15] LABS: Erythrocyte Sed Rate 13 mm/hour (0-20)
[2024-07-13 16:21] LABS: ALT (SGPT) 20 U/L (0-35); AST (SGOT) 21 U/L (14-36); Albumin 4.6 g/dl (3.5-5.0); Alkaline Phosphatase 65 U/L (38-126); Blood Urea Nitrogen 10 mg/dl (7-17); Calcium 9.6 mg/dl (8.4-10.2); Carbon Dioxide 32 mmol/L (22-30); Chloride 95 mmol/L (98-107); Glucose 107 mg/dl (70-99); Potassium 3.5 mmol/L (3.5-5.1); Sodium 135 mmol/L (135-145); Total Bilirubin 0.6 mg/dl (0.2-1.3); eGFR > 60.00
== END 2024-07-14 09:24 | disposition home or self-care (01) ==
LOC: OID 15:07
PROVIDERS: ATTENDING PHYSICIAN Internal Medicine Rheumatology; FAMILY PHYSICIAN Family Medicine; OTHER PHYSICIAN Psychiatry & Neurology Neurology
DX: M05.20 Rheumatoid vasculitis with rheumatoid arthritis of unspecified site (principal); M06.09 Rheumatoid arthritis without rheumatoid factor, multiple sites; M31.0 Hypersensitivity angiitis
CPT/HCPCS: 36591; 80053; 85025; 85652; 86140; 96523

== ENCOUNTER 2024-08-10 14:49 | Outpatient (RCR) | payer BC, MEDICARE, SELFPAY ==
[2024-08-10 15:10] VITALS: BP 129/81
== END 2024-09-07 23:59 | disposition home or self-care (01) ==
LOC: OID 14:49
PROVIDERS: ATTENDING PHYSICIAN Internal Medicine Rheumatology; FAMILY PHYSICIAN Family Medicine; OTHER PHYSICIAN Psychiatry & Neurology Neurology
DX: M31.0 Hypersensitivity angiitis (principal); M06.9 Rheumatoid arthritis, unspecified; R26.9 Unspecified abnormalities of gait and mobility
CPT/HCPCS: 96523

== ENCOUNTER → 2024-09-19 10:08 | Outpatient (REF) | payer MEDICARE, BC, SELFPAY | LOC: DHVS 10:08 | PROVIDERS: ATTENDING PHYSICIAN Surgery Vascular Surgery; FAMILY PHYSICIAN Family Medicine | DX: G54.0 Brachial plexus disorders (principal); I87.1 Compression of vein | CPT/HCPCS: 93923; 93930; 93978 ==

== ENCOUNTER → 2024-10-07 15:39 | Outpatient (REF) | payer MEDICARE, BC, SELFPAY ==
[2024-10-07 17:10] LABS: Blood Urea Nitrogen 8 mg/dl (7-17); Calcium 8.3 mg/dl (8.4-10.2); Carbon Dioxide 26 mmol/L (22-30); Chloride 103 mmol/L (98-107); Glucose 91 mg/dl (70-99); Potassium 3.4 mmol/L (3.5-5.1); Sodium 134 mmol/L (135-145); eGFR > 60.00
== END ==
LOC: RAD 15:39
PROVIDERS: ATTENDING PHYSICIAN Registered Nurse; FAMILY PHYSICIAN Family Medicine
DX: I87.1 Compression of vein (principal); G54.0 Brachial plexus disorders
CPT/HCPCS: 36415; 80048

== ENCOUNTER 2024-11-14 15:31 | Outpatient (RCR) | payer MEDICARE, BC, SELFPAY ==
[2024-11-14 16:09] VITALS: BP 108/67
== END 2024-11-15 11:34 | disposition home or self-care (01) ==
LOC: OID 15:31
PROVIDERS: ATTENDING PHYSICIAN Internal Medicine Rheumatology; FAMILY PHYSICIAN Family Medicine; OTHER PHYSICIAN Psychiatry & Neurology Neurology
DX: M31.0 Hypersensitivity angiitis (principal); M05.20 Rheumatoid vasculitis with rheumatoid arthritis of unspecified site; M06.9 Rheumatoid arthritis, unspecified; R26.9 Unspecified abnormalities of gait and mobility
CPT/HCPCS: 96523

== ENCOUNTER 2024-12-12 14:40 | Outpatient (RCR) | payer MEDICARE, BC, SELFPAY ==
[2024-12-12 15:10] VITALS: BP 129/77
== END 2025-01-05 14:36 | disposition home or self-care (01) ==
LOC: OID 14:40
PROVIDERS: ATTENDING PHYSICIAN Internal Medicine Rheumatology; FAMILY PHYSICIAN Family Medicine; OTHER PHYSICIAN Psychiatry & Neurology Neurology
DX: M31.0 Hypersensitivity angiitis (principal); M06.09 Rheumatoid arthritis without rheumatoid factor, multiple sites; M05.20 Rheumatoid vasculitis with rheumatoid arthritis of unspecified site; R26.9 Unspecified abnormalities of gait and mobility; M06.9 Rheumatoid arthritis, unspecified
CPT/HCPCS: 96523

== ENCOUNTER → 2024-12-29 09:38 | Outpatient (REF) | payer MEDICARE, BC, SELFPAY | LOC: WDC 09:38 | PROVIDERS: ATTENDING PHYSICIAN Nurse Practitioner Family; FAMILY PHYSICIAN Family Medicine | DX: N63.10 Unspecified lump in the right breast, unspecified quadrant (principal); N63.11 Unspecified lump in the right breast, upper outer quadrant | CPT/HCPCS: 76642; 77062; 77066 ==

== ENCOUNTER 2025-01-11 15:06 | Outpatient (RCR) | payer MEDICARE, BC, SELFPAY ==
[2025-01-11 15:10] VITALS: BP 112/76
[2025-01-11 15:40] LABS: Hematocrit 34.0 % (37.0-47.0); Hemoglobin 10.3 g/dL (12.0-16.0); Mean Corp Hgb Conc. 30.3 g/dL (33.0-37.0); Mean Corpuscular Volume 79.8 fL (81.0-99.0); Nucleated Red Blood Cells % 0 %; Platelet Count 306 10^3/uL (130-400); Red Cell Dist. Width 17.2 % (11.5-14.5)
[2025-01-11 16:37] LABS: ALT (SGPT) 16 U/L (0-35); AST (SGOT) 21 U/L (14-36); Albumin 4.2 g/dl (3.5-5.0); Alkaline Phosphatase 68 U/L (38-126); Blood Urea Nitrogen 5 mg/dl (7-17); Calcium 9.1 mg/dl (8.4-10.2); Carbon Dioxide 26 mmol/L (22-30); Chloride 106 mmol/L (98-107); Glucose 92 mg/dl (70-99); Potassium 4.0 mmol/L (3.5-5.1); Sodium 137 mmol/L (135-145); Total Protein 6.7 g/dl (6.3-8.2); eGFR > 60.00
[2025-01-11 16:39] LABS: C-Reactive Protein 9.00 mg/L (0.0-10.00)
== END 2025-01-12 15:30 | disposition home or self-care (01) ==
LOC: OID 15:06
PROVIDERS: ATTENDING PHYSICIAN Internal Medicine Rheumatology; FAMILY PHYSICIAN Family Medicine; OTHER PHYSICIAN Psychiatry & Neurology Neurology
DX: M31.0 Hypersensitivity angiitis (principal); M06.09 Rheumatoid arthritis without rheumatoid factor, multiple sites; M05.20 Rheumatoid vasculitis with rheumatoid arthritis of unspecified site; R26.9 Unspecified abnormalities of gait and mobility; M06.9 Rheumatoid arthritis, unspecified
CPT/HCPCS: 36591; 80053; 85025; 85652; 86140; 96523

== ENCOUNTER 2025-01-29 19:48 | Emergency (ER) | payer MEDICARE, BC, SELFPAY ==
[2025-01-29] VITALS (8 sets, daily range): BP systolic 117–136; BP diastolic 61–105; PULSE 78–84
[2025-01-29] MEDS: NSS 1000 IV (21:56)
[2025-01-29 22:00] LABS: Hematocrit 35.1 % (37.0-47.0); Hemoglobin 11.1 g/dL (12.0-16.0); Mean Corp Hgb Conc. 31.6 g/dL (33.0-37.0); Mean Corpuscular Volume 79.6 fL (81.0-99.0); Nucleated Red Blood Cells % 0 %; Platelet Count 301 10^3/uL (130-400); Red Cell Dist. Width 16.4 % (11.5-14.5)
[2025-01-29 22:11] LABS: INR 1.07; PT 14.2 Sec (11.4-14.6)
[2025-01-29 22:12] LABS: APTT 29.9 Sec (23.4-35.0)
[2025-01-29 22:13] LABS: ALT (SGPT) 18 U/L (0-35); AST (SGOT) 24 U/L (14-36); Albumin 4.5 g/dl (3.5-5.0); Alkaline Phosphatase 71 U/L (38-126); Blood Urea Nitrogen 7 mg/dl (7-17); Calcium 9.6 mg/dl (8.4-10.2); Carbon Dioxide 24 mmol/L (22-30); Chloride 106 mmol/L (98-107); Glucose 90 mg/dl (70-99); Lipase 153 U/L (23-300); Potassium 3.7 mmol/L (3.5-5.1); Sodium 138 mmol/L (135-145); Total Protein 7.3 g/dl (6.3-8.2); eGFR > 60.00
[2025-01-29 22:13] LABS: Urine Character Clear (Clear)
[2025-01-29 22:30] LABS: Urine Squamous Cell 16-20 /LPF (Few)
[2025-01-29 22:31] LABS: Urine Red Blood Cell 0-2 /HPF (0-2)
[2025-01-29] MEDS: ZOFRAN 4 MG IV (23:37)
--- NOTE | 2025-01-30 01:48 | ED.GENMED ---
History of Present Illness
General
Chief Complaint: Abdominal Symptoms
Time Seen by Provider: 01/29/25 20:51
Nursing documentation reviewed up to this point in time: agreed with
History of Present Illness
History of Present Illness:
34-year-old female presents to the ER for evaluation of multiple complaints which have been going on for several weeks if not months. Patient states that most concerning today is that she is out of her oral Zofran and has been having vomiting, more
than 3 episodes today. Patient reports that she frequently has vomiting which is typically alleviated by her Zofran. She states that she has been vomiting more frequently and has had some weight loss which causes her to have pain in her upper
chest when she is vomiting. She is also very concerned because she has a lump in her right axilla which has not yet been formally fully evaluated. Patient states that she saw her [facility] and had outpatient mammogram along with an ultrasound-her
mammogram was normal however they were unable to visualize the soft tissue mass on her ultrasound. Patient states that she has been having episodes of dizziness, in particular when she is laying flat. She has been checking her blood pressure
several times daily and feels that her blood pressure is very low when she is laying flat and very high when she is standing up. She states that she frequently faints when she is laying flat. Patient is on chronic pain medication and sees a
supervisor color making. She has an indwelling port due to her lack of peripheral venous access. She states that sometimes they have difficulty using her port which she believes is related to the mass in her axilla and her fluctuations in weight. Patient
has not seen a warehouse person in more than 10 years. 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
She occasionally feels tightness in her chest, predominantly after she has been vomiting. She reports that she fainted on Thursday but has not had a loss of consciousness since then. She denies any dysuria or change in urine output. She states
that she chronically has abnormal stools which she would not necessarily characterizes diarrhea. She reports that she had a typical bowel movement today. She denies any blood in her stool. She has not seen her rural carrier recently. She
does have an extensive prior medical history including migraines, back pain, asthma, DVT, reflux, ulcers, MASH, urinary tract infections, rheumatoid arthritis, anxiety, bipolar disorder, substance abuse in remission.
I reviewed her most recent note from rheumatology dated 08/09/2024, Dr. Rojo. I reviewed her medication list at time of this visit.
Past History
Past History
ED Past Medical History: Asthma, Other (History of migraines chronic bronchitis, pneumonia, stomach ulcers, ovarian cysts, passed kidney infections, depression, bipolar disorder, rectal bleeding. Anemia) and Other; Negative CAD, Cancer, CHF or HTN
ED Past Surgical History: Cholecystectomy and Tonsilectomy; Negative Appendectomy, Bowel resection, Brain or Cardiac
Social History
Tobacco: Smoker
Alcohol: Occasional
Drug: Former user
Personal: Single
Living: with family
Employment: Employed
Family History
Family History: Other (Kidney stones and gallstones)
Review of Systems
Review of Systems
Allergies reviewed?: Yes
Phy Exam
Physical Exam
Physical Exam:
Patient is awake, alert, appears in no acute distress, head is NCAT, PERRL, EOMI mucous membranes moist, conjunctiva pink, heart regular rate and rhythm without murmurs or ectopy, lungs are clear to auscultation without wheezes rales or rhonchi,
port is present right anterior chest wall, no JVD, abdomen is soft and nontender on palpation, right axilla reveals mobile soft tissue prominence in the axilla, no overlying erythema, no overlying skin change, bilateral lower extremities appear to
have mild atrophy, skin is thin with diffuse striae,, GCS is 15
Course
Orders/Labs/Results
Orders:
Orders
01/29/25 19:50
EKG [Electrocardiogram (*1)] Urgent
Reason for Study: Tachycardia
EKG- Treatment ONCE
01/29/25 21:15
0.9% Sodium Chloride 1000 ml [Nss] 1,000 ml IV BOLUS
01/29/25 21:16
CR Chest - 2 Views Urgent
Comment:
Reason For Exam: syncope
01/29/25 21:17
Orthostatic VS- Treatment ONCE
01/29/25 21:52
Complete Blood Count/With Diff Urgent
Comprehensive Metabolic Panel Urgent
Lipase Urgent
PTT Urgent
Prothrombin Time Urgent
01/29/25 21:56
Urinalysis Reflex To Culture Urgent
Date Specimen was Collected: 01/29/25
Time Specimen was Collected: 21:19
Urine Microscopic Reflex Cult Urgent
Urine Culture Urgent
FERMIN Source: U
Specimen Description:
Date Specimen was Collected: 01/29/25
Time Specimen was Collected: 21:19
01/29/25 23:29
Ondansetron Injectable [Zofran] 4 mg IV NOW STA
Abnormal Lab Results
01/29/25 01/29/25
21:52 21:56
Hgb 11.1 L g/dL
(12.0-16.0)
Hct 35.1 L %
(37.0-47.0)
MCV 79.6 L fL
(81.0-99.0)
MCH 25.2 L pg
(27.0-31.0)
MCHC 31.6 L g/dL
(33.0-37.0)
RDW 16.4 H %
(11.5-14.5)
Abs Immat Gran (auto) 0.1 H 10^3/uL
(0-0.05)
Absolute Neuts (auto) 7.4 H 10^3/uL
(1.4-6.5)
Absolute Monos (auto) 1.0 H 10^3/uL
(0.1-0.6)
Immature Gran % 0.6 H %
(0-0.5)
Lymphocytes % 12.1 L %
(20.5-51.1)
Monocytes % 9.9 H %
(1.7-9.3)
Leukocyte Esterase Rfl 1+ A
(Negative)
Urine Albumin (Reflex) 2+ A
(Neg - Trace)
01/29/25 21:52
01/29/25 21:52
Labs are very reassuring-normal electrolytes, normal kidney function, urinalysis does not reveal evidence for dehydration or infection, mild anemia noted which is actually improved compared to prior labs from 01/11/2025
Vital Signs
Initial and Last Documented VS:
Initial Vital Signs
Temp Pulse Resp BP Pulse Ox
98.2 F 96 18 136/99 100
01/29/25 19:56 01/29/25 19:56 01/29/25 19:56 01/29/25 19:56 01/29/25 19:56
Last Documented Vital Signs
Temp Pulse Resp BP Pulse Ox
98 F 82 16 117/61 99
01/29/25 20:00 01/29/25 23:30 01/29/25 23:30 01/29/25 23:00 01/30/25 01:50
MDM/Problems Addressed
Differential Diagnosis Includes:
Differential diagnosis to consider but not limited to dehydration, vasovagal syncope, cannabinoid hyperemesis, gastroparesis, POTS, electrolyte dyscrasia along with other etiologies considered
Chronic conditions affecting care:
Chronic pain, rheumatoid arthritis
*Radiology
Radiology exam reviewed: radiology read reviewed (IMPRESSION: No acute disease of the chest.)
*Pulse Oximetry
SaO2: 99
Oxygen Mode of Delivery: Room air
Patient hypoxic: no
*EKG
Interpreted by ED Provider?: Yes (I independently viewed and interpreted twelve-lead EKG showing sinus tachycardia, rate 101, leftward axis, nonspecific EKG without evidence for acute ischemia)
*Coverage Specialist Interpretation
Rate: normal (I dependently viewed and interpreted rhythm strip showing mild sinus tachycardia, no ectopy)
*Critical Care Note
Total Time (30-74mins, 75-104mins- exclusive of procedures): Not Applicable
Update Note
Update Note:
Patient resting comfortably in no acute distress throughout time in the emergency department. No recurrent emesis. Once all test results available, I discussed them with patient and her present at bedside. I discussed with them normal
x-ray, port appears in good position. I discussed with her need to follow back up with her physicians for further evaluation of soft tissue mass in her axilla. I discussed with her possibility of cannabinoid hyperemesis as etiology of her frequent
vomiting as she is using marijuana daily to help with her anxiety. I discussed with patient no evidence for acute worrisome infection. I provided patient with additional prescription for Zofran. I also discussed with patient benefit of follow-up
with cardiology for her concerns of neurocardiogenic syncope-orthostatic vital signs were not worrisome here today. She and significant other present at bedside felt comfortable with plan for discharge and had no questions prior to leaving the
department
ED Attending Note
-
Portions of this chart may have been created with voice recognition software.� Occasional wrong word or��sound alike� substitutions may have occurred due to the inherent limitations of voice recognition software.
Discharge Plan
Departure
Patient Disposition: Home (Routine Discharge)
Date of Disposition: 01/29/25
Time of Disposition: 23:29
Patient with high blood pressure during this ER visit?: No
Discharge Problem:
Syncope, Vomiting
Instructions: Nausea and vomiting in adults - ED (DC), Fainting in adults - ED (DC)
Prescriptions:
New
ondansetron 4 mg tablet,disintegrating
4 mg PO TIDPRN PRN (Reason: nausea/vomiting) Qty: 30 0RF
No Action
folic acid 1 MG tablet
1 mg PO SUMOTUTHFRSA
tizanidine 2 MG tablet
2 mg PO Q8HPRN PRN (Reason: pain)
cetirizine 10 MG tablet
10 mg PO HS
acetaminophen [Tylenol Extra Strength] 500 MG tablet
1,000 mg PO Q6HPRN PRN (Reason: pain)
dextroamphetamine-amphetamine [Adderall] 20 MG tablet
10 mg PO BIDPRN PRN (Reason: adhd)
hydroxychloroquine 200 MG tablet
200 mg PO BID
buprenorphine HCl 8 MG tablet, sublingual
8 mg sublingual BID
Rx Instructions:
patient can not have the orange colored tablets, makes her throw up, patient had meds with her
levalbuterol tartrate 1 PUFF HFA aerosol inhaler
2 puff inhalation R Q4HPRN PRN (Reason: sob)
clonazepam [Klonopin] 1 mg Tablet
1 mg PO HS
lorazepam 2 mg Tablet
2 mg PO BIDPRN PRN (Reason: anxiety)
clopidogrel [Plavix] 75 mg Tablet
75 mg PO HS
methotrexate sodium (PF) 25 mg/mL Solution
2 mg IM WE
Medical Marijuana
0.5 patch topical BIDPRN PRN (Reason: hips)
Rituxan 1,000 mg
1,000 mg IV .[id number]
Patient Comments:
last given on 03/23/24
prednisone 10 mg tablet
2.5 mg PO DAILY
Rx Instructions:
40 mg X2 days,30 mg X 2 days, 20 mg X days then back on 10 mg daily
Referrals:
Michael Machado, DO [Active, Cardiology] - Next open appointment
Discharge Problem: Syncope
UNKNOWN - PT DOES,NOT KNOW [Family Provider]
Activity Restrictions/Additional Instructions:
Encourage fluids. Please follow-up with cardiology office to discuss issues with lightheadedness when laying down and fainting episodes. Please also speak with your marijuana prescriber to discuss possible adverse reaction to marijuana causing
repetitive vomiting episodes. Please also follow-up with your rural carrier as they may be helpful for further evaluation and care. Return to the ER for any concerns.
Interventions
Interventions:
*Risk Screen - Suicide Last Done: 01/29/25 19:56
*General Assessment Last Done: 01/29/25 21:21
*Neglect/Abuse Screening Last Done: 01/29/25 21:21
*ED- Fall Risk Assessment Last Done: 01/29/25 21:21
*ED COVID-19 Vaccine History Last Done: 01/29/25 21:21
*Nursing Disposition Last Done: 01/29/25 23:51
HG-Evnjah-Gyfcjnqwkr Assessment Last Done: 01/29/25 21:21
ED- Cardiac Assessment Last Done: 01/29/25 21:21
ED- Pulmonary Assessment Last Done: 01/29/25 21:21
Discharge Date and Time
Discharge Date/Time: 01/29/25 23:51
Print Language: COLOMBIAN
== END 2025-01-29 23:51 | disposition home or self-care (01) ==
LOC: EMR 19:48
PROVIDERS: EMERGENCY PHYSICIAN Emergency Medicine
DX: R55 Syncope and collapse (principal); R11.10 Vomiting, unspecified; D64.9 Anemia, unspecified; R00.0 Tachycardia, unspecified; F12.90 Cannabis use, unspecified, uncomplicated; J44.89 Other specified chronic obstructive pulmonary disease; K21.9 Gastro-esophageal reflux disease without esophagitis; I87.1 Compression of vein; K75.81 Nonalcoholic steatohepatitis (NASH); M06.9 Rheumatoid arthritis, unspecified; F31.9 Bipolar disorder, unspecified; F41.9 Anxiety disorder, unspecified; F17.200 Nicotine dependence, unspecified, uncomplicated; Z86.718 Personal history of other venous thrombosis and embolism
CPT/HCPCS: 99284; 96374; 71046; 80053; 81003; 81015; 83690; 85025; 85610; 85730; 87086; 93005

== ENCOUNTER → 2025-02-06 15:51 | Outpatient (REF) | payer MEDICARE, BC, SELFPAY | LOC: HWRCS 15:51 | PROVIDERS: ATTENDING PHYSICIAN Nuclear Medicine Nuclear Cardiology; FAMILY PHYSICIAN Family Medicine | DX: R55 Syncope and collapse (principal) | CPT/HCPCS: 93306 ==

== ENCOUNTER → 2025-03-23 08:10 | Outpatient (REF) | payer MEDICARE, BC, SELFPAY | LOC: RAD 08:10 | PROVIDERS: ATTENDING PHYSICIAN Nurse Practitioner Family; FAMILY PHYSICIAN Family Medicine | DX: R11.10 Vomiting, unspecified (principal); R68.81 Early satiety | CPT/HCPCS: 78264; A9541 ==